=== PATIENT | female | born 1980 | race Caucasian/White ===

== ENCOUNTER 2016-10-24 07:44 | Inpatient (IN) ==
[2016-10-24] MEDS ORDERED: Ipratropium/Albuterol Neb 3 ML IH ONE ×3 (08:26→10:32)
[2016-10-24] MEDS ORDERED: Levofloxacin 750 MG/150 ML 750 MG/150 ML BAG IVPB ONE (08:27)
[2016-10-24] MEDS ORDERED: Ipratropium/Albuterol Neb 3 ML ONE ×2 (08:28→10:21)
[2016-10-24 08:46] LABS: Basophils # 0.1 K/mcL (0.0-0.2); Basophils % 0.9 %; Eosinophils # 0.1 K/mcL (0.0-0.6); Eosinophils % 1.5 %; Hematocrit 48.4 % (35.3-44.9); Hemoglobin 16.4 g/dL (11.5-15.4); Immature Granulocytes % 0.2 % (0-4); Immature Platelets 3.1 % (1.1-6.1); Lymphocytes # 1.3 K/mcL (0.6-4.6); Lymphocytes % 15.7 %; Mean Corpuscular HGB Conc 33.9 g/dL (31.6-35.5); Mean Corpuscular Hemoglobin 29.8 pg (28.0-33.3); Mean Corpuscular Volume 87.8 fL (83.0-100.0); Mean Platelet Volume 9.7 fL (9.4-12.4); Monocytes # 0.9 K/mcL (0.0-1.3); Monocytes % 10.3 %; Platelet Count 173 K/mcL (140-400); Red Blood Count 5.51 M/mcL (3.82-4.97); Red Cell Distribution Width 12.8 % (11.5-14.5); Segmented Neutrophils % 71.4 %
[2016-10-24 09:00] LABS: BUN/Creatinine Ratio 15 (6-26); Blood Urea Nitrogen 13 mg/dL (7-20); Calcium 9.2 mg/dL (8.6-10.8); Carbon Dioxide 17 mEq/L (19-29); Chloride 103 mEq/L (98-109); Glucose 93 mg/dL (70-99); Osmolality,Calculated 284 (280-300); Potassium 4.3 mEq/L (3.5-4.5); Sodium 137 mEq/L (136-145); eGFR For African Americans > 60 (> 60); eGFR For Non-African Americans > 60 (> 60)
--- NOTE | 2016-10-24 09:02 | Emergency Department Note ---
Disposition Clinical Impression: Acute exacerbation of chronic obstructive airways disease, Hypoxia Disposition: Admitted As Inpatient Condition: Good Referrals: NO,PCP [Primary Care Provider] - Forms: ED Satisfaction Letter Time of Disposition: 10:58 SOB HPI - General Chief Complaint: ED Shortness of Breath/Dyspnea Stated Complaint: KAILEY, cough Time Seen by Provider: 10/24/16 08:26 Source: patient Mode of arrival: private vehicle Limitations: no limitations Nursing Notes Reviewed: Yes Vital Signs Reviewed: Yes - History of Present Illness 35-year-old female patient presents to the emergency department complaining of difficulty in breathing and cough times several days. Patient states that she has had similar episodes in the past where she was diagnosed with bronchitis/ pneumonia. Patient states that she recently quit smoking, however is exposed to secondhand smoke quite often. She also complains of pain with inspiration. She notes a subjective fever and chills, but denies any nausea, vomiting abdominal pain or diarrhea. She has no additional complaints. Pt Subjective Complaint: shortness of breath, cough, pain with inspiration Onset (ago): day(s) Severity: severe Consistency/Duration: constant, gradually worsening Improves with: nothing Worsens with: coughing, inspiration Known history of: recurrent pneumonia Associated symptoms: Reports: pain with inspiration, fever, cough, wheezing Treatment prior to arrival: none Cough present: Yes Cough Description: Involuntary Cough Frequency: Intermittent Sputum production: No Sputum Amount: None - Related Data Home Medications Medication Instructions Recorded Confirmed Albuterol Neb [Proventil Neb] 2.5 mg IH DAILY 04/19/16 04/22/16 Albuterol Sulfate [Albuterol 2 puff IH Q6HR PRN 04/19/16 04/22/16 Inhaler] Buprenorphine HCl [Subutex] 8 mg SL BID 04/19/16 04/22/16 Fluticasone Propionate Nasal 1 spray NS BID 04/19/16 04/22/16 [Flonase] Lisinopril [Zestril] 20 mg PO DAILY 04/19/16 04/22/16 Metoprolol [Lopressor] 25 mg PO BID 04/19/16 04/22/16 Montelukast [Singulair] 10 mg PO DAILY 04/19/16 04/22/16 Budesonide/Formoterol 80/4.5 2 puff IH BID 04/20/16 04/22/16 [Symbicort 80/4.5] Omeprazole [PriLOSEC] 40 mg PO DAILY 04/20/16 04/22/16 Previous Rx's Medication Instructions Recorded GuaiFENesin ER [Mucinex] 600 mg PO BID PRN #30 tbbp.12hr 04/24/16 Levofloxacin [Levaquin] 750 mg PO DAILY #4 tablet 04/24/16 PredniSONE 10 mg PO DAILY #20 tablet 04/24/16 Allergies Allergy/AdvReac Type Severity Reaction Status Date / Time No Known Allergies Allergy Verified 10/24/16 08:08 All systems ED: reviewed and negative except as stated. Constitutional: Reports: fever, chills ENT ED: Denies: ear pain, throat pain Cardiovascular: Reports: chest pain Respiratory: Reports: cough, dyspnea, wheezes Gastrointestinal: Denies: abdominal pain, nausea, vomiting Musculoskeletal: Denies: back pain, neck pain Integumentary: Denies: rash, abrasion, lesions Neurological: Denies: headache Psychiatric: Denies: anxiety, depression, suicidal thoughts, homicidal thoughts Past Medical History - Past Medical History Attestation: Yes The following information was validated with the patient. Source: patient, nursing notes reviewed Medical history: Reports: arthritis, asthma, COPD, GERD, hypertension, other Surgical history: Reports: other (Tubal ligation) Psychiatric history: Reports: anxiety MAXILLOFACIAL SURGEON history: Reports: no MAXILLOFACIAL SURGEON history - Social History Smoking Status: Former smoker Smokeless Tobacco Status: No Alcohol use: Reports: none Drug use: Reports: none Physical Exam - General Limitations: no limitations General appearance: alert, in no apparent distress - Head Head exam: atraumatic, normocephalic, normal inspection - Eye Eye exam: Present: normal appearance, PERRL - ENT ENT exam: normal exam, normal oropharynx, mucous membranes moist, TM's normal bilaterally - Neck Neck exam: Present: normal inspection, full ROM, trachea midline - Chest Chest inspection: Present: normal inspection, symmetric chest wall rise, tenderness - Expanded Respiratory Exam Location: wheezes: Lower, Upper, Right, Left, rhonchi: Left, Right, Upper, Lower , decreased breath sounds: Lower, Upper, Right, Left - Cardiovascular Cardiovascular exam: Present: normal rhythm, tachycardia - Extremities Exam Extremities exam: Present: normal inspection, full ROM. Absent: tenderness, pedal edema - Back Exam Back exam: Present: normal inspection, full ROM. Absent: tenderness - Neurological Exam Neurological exam: Present: alert, oriented X3 - Psychiatric Psychiatric exam: Present: normal affect, normal mood - Skin Skin exam: Present: warm, dry, intact, normal color Course - Reevaluation(s) Reevaluation #1: Patient received 3 DuoNeb treatments and IV Solu-Medrol, states some mild improvement in her symptoms, however when we ambulated her her O2 saturation dropped down to 83%. Patient does not wear home oxygen. Oxygen saturation while in the bed on 2 L nasal cannula is between 90-94%. No evidence of pneumonia on the chest x-ray, however her hypoxia will require admission, frequent DuoNeb treatments and continued IV steroids. Plan to call hospitalist to discuss admission. Time: 10:58 - Consultations Consultation #1: Discussed with hospitalist, patient accepted for COPD exacerbation and hypoxia. Time: 11:11 Vital Signs Temperature 99.6 F 10/24/16 08:02 Pulse Rate 145 10/24/16 08:02 Respiratory Rate 24 10/24/16 08:02 Blood Pressure 103/79 10/24/16 08:02 O2 Sat by Pulse Oximetry 92 L 10/24/16 08:02 Temperature 99.6 F 10/24/16 08:02 Pulse Rate 133 10/24/16 09:58 Respiratory Rate 15 10/24/16 10:01 Blood Pressure 124/71 10/24/16 10:01 O2 Sat by Pulse Oximetry 92 L 10/24/16 10:01 Oxygen Delivery Oxygen Delivery Nasal Cannula Shortness of Breath/Dyspnea - Lab Data Lab results reviewed: Yes I reviewed the patient's lab results. Result diagrams: 10/24/16 08:36 10/24/16 08:36 Lab Results 10/24/16 10/24/16 10/24/16 Range/Units 08:36 08:36 08:36 WBC 8.5 (4.3-11.1) K/mcL RBC 5.51 H (3.82-4.97) M/mcL Hgb 16.4 H (11.5-15.4) g/dL Hct 48.4 H (35.3-44.9) % MCV 87.8 (83.0-100.0) fL MCH 29.8 (28.0-33.3) pg MCHC 33.9 (31.6-35.5) g/dL RDW 12.8 (11.5-14.5) % Plt Count 173 (140-400) K/mcL MPV 9.7 (9.4-12.4) fL Immature Gran % 0.2 (0-4) % Seg Neutrophils % 71.4 % Lymphocytes % 15.7 % Monocytes % 10.3 % Eosinophils % 1.5 % Basophils % 0.9 % Neutrophils # 6.0 (1.6-8.9) K/mcL Lymphocytes # 1.3 (0.6-4.6) K/mcL Monocytes # 0.9 (0.0-1.3) K/mcL Eosinophils # 0.1 (0.0-0.6) K/mcL Basophils # 0.1 (0.0-0.2) K/mcL Immature Plt Fraction 3.1 (1.1-6.1) % D-Dimer (0-500) ng/mLFEU Sodium 137 (136-145) mEq/L Potassium 4.3 (3.5-4.5) mEq/L Chloride 103 (98-109) mEq/L Carbon Dioxide 17 L (19-29) mEq/L BUN 13 (7-20) mg/dL Creatinine 0.84 (0.57-1.11) mg/dL Est GFR ( Amer) > 60 (> 60) Est GFR (Non-Af Amer) > 60 (> 60) BUN/Creatinine Ratio 15 (6-26) Glucose 93 (70-99) mg/dL Calculated Osmolality 284 (280-300) Lactic Acid (0.5-2.2) mmol/L Calcium 9.2 (8.6-10.8) mg/dL Troponin I 0.01 (0-0.03) ng/mL B-Natriuretic Peptide (0-100) pg/mL 10/24/16 10/24/16 10/24/16 Range/Units 08:36 08:36 08:36 WBC (4.3-11.1) K/mcL RBC (3.82-4.97) M/mcL Hgb (11.5-15.4) g/dL Hct (35.3-44.9) % MCV (83.0-100.0) fL MCH (28.0-33.3) pg MCHC (31.6-35.5) g/dL RDW (11.5-14.5) % Plt Count (140-400) K/mcL MPV (9.4-12.4) fL Immature Gran % (0-4) % Seg Neutrophils % % Lymphocytes % % Monocytes % % Eosinophils % % Basophils % % Neutrophils # (1.6-8.9) K/mcL Lymphocytes # (0.6-4.6) K/mcL Monocytes # (0.0-1.3) K/mcL Eosinophils # (0.0-0.6) K/mcL Basophils # (0.0-0.2) K/mcL Immature Plt Fraction (1.1-6.1) % D-Dimer 409 (0-500) ng/mLFEU Sodium (136-145) mEq/L Potassium (3.5-4.5) mEq/L Chloride (98-109) mEq/L Carbon Dioxide (19-29) mEq/L BUN (7-20) mg/dL Creatinine (0.57-1.11) mg/dL Est GFR ( Amer) (> 60) Est GFR (Non-Af Amer) (> 60) BUN/Creatinine Ratio (6-26) Glucose (70-99) mg/dL Calculated Osmolality (280-300) Lactic Acid 1.0 (0.5-2.2) mmol/L Calcium (8.6-10.8) mg/dL Troponin I (0-0.03) ng/mL B-Natriuretic Peptide 41 (0-100) pg/mL - Radiology Data Radiology results reviewed: Yes I reviewed the patient's radiology results. - EKG Data EKG attestation: Yes I reviewed and interpreted this EKG. EKG shows normal: Reports: sinus rhythm Rate: Reports: tachycardia Rhythm: Reports: NSR [place]/QRS: Reports: normal Attestation Statement - Attestation Attestation: Patient was seen with physician assistant manager pt. I reviewed the history, physical, assessment and plan, and agree with the findings. I also personally evaluated this patient and had oslo-df-ryhe time with this patient. 35-year-old female history of asthma and COPD presents with four-day history of worsening shortness of breath. Has home nebulizer treatments but they are not helping. Not on home O2. Denies fevers or chills has had occasional cough. No nausea vomiting or diarrhea. Denies any symptoms. On examination ENT is unremarkable. Lungs were listened to after 3 treatments and still showed significant wheezing throughout all lung ellison. Heart was tachycardic but regular with regular rhythm. Abdomen is soft and nontender extremities are unremarkable. Patient was given 3 breathing treatments and Solu-Medrol, but she still had nausea requirement in any labor drop her oxygen level to the low 80s. She is going to require inpatient respiratory therapy and pulmonary care in order to get her back to baseline. The hospitalist was notified and admission was arranged. Other laboratory testing was unremarkable and a chest x -ray did not show any acute abnormalities. EKG showed sinus tachycardia.I agree with the physicia aistant assessment and plan.
[2016-10-24] MEDS ORDERED: methylPREDNISolone 125 MG/2 ML VIAL IVP ONE (09:17)
[2016-10-24] MEDS ORDERED: 0.9 % Sodium Chloride 1,000 ML IVC ONE (09:17)
[2016-10-24] MEDS ORDERED: Ketorolac 30 MG/ML VIAL IV ONE (09:40)
[2016-10-24] MEDS ORDERED: 0.9 % Sodium Chloride 1,000 ML ONE (10:38)
[2016-10-24] MEDS ORDERED: Acetaminophen 325 MG TABLET PO PRN (11:39)
[2016-10-24] MEDS ORDERED: Naloxone 0.4 MG/ML INJ IVP PRN (11:39)
[2016-10-24] MEDS ORDERED: Ondansetron 4 MG/2 ML VIAL IVP PRN (11:39)
[2016-10-24] MEDS ORDERED: *HR* Morphine 2 MG/ML SYRINGE IVP PRN (11:39)
[2016-10-24] MEDS ORDERED: Ibuprofen 400 MG TABLET PO PRN (11:39)
--- NOTE | 2016-10-24 11:43 | Internal Med History&Physical ---
Date of Encounter: 10/24/16 Time of Encounter: 11:41 Assessment and Plan (1) Acute respiratory failure with hypoxia Current visit: No Status: Acute Acute hypoxic respiratory failure secondary to acute COPD exacerbation due to sepsis from acute bronchitis viral versus bacterial Start Rocephin, continue Solu-Medrol, DuoNeb's and oxygen therapy Check a respiratory viral panel (2) Bronchitis Current visit: Yes Status: Acute (3) Leukocytosis Current visit: Yes Status: Acute Qualifiers: Leukocytosis type: unspecified Qualified Code(s): D72.829 - Elevated white blood cell count, unspecified (4) Sepsis Current visit: No Status: Acute Qualifiers: Sepsis type: sepsis due to unspecified organism Qualified Code(s): A41.9 - Sepsis, unspecified organism (5) Acute exacerbation of chronic obstructive airways disease Current visit: Yes Status: Acute (6) Marijuana abuse Current visit: Yes Status: Acute Encouraged to quit (7) Hypertension Current visit: No Status: Chronic Qualifiers: Hypertension type: essential hypertension Qualified Code(s): I10 - Essential (primary) hypertension (8) GERD (gastroesophageal reflux disease) Current visit: Yes Status: Acute Omeprazole for GI prophylaxis Lovenox for DVT prophylaxis. Patient will be admitted as inpatient, expected to stay more than 2 midnights. Full code. Time spent on this admission 40 minutes. High for respiratory failure Qualifiers: Qualified Code(s): K21.9 - Gastro-esophageal reflux disease without esophagitis Internal Medicine - H&P: HPI Chief complaint: shortness of breath Admitted From: Emergency Dept History of present illness: Ms. Remy is a 35 year old female with a past medical history of COPD O2 independent, asthma, GERD, who comes to the emergency room complaining of 4 days of difficulty breathing worse in the past day. She has been dealing with a respiratory infection and a viral infection that affected her daughter initially, she called it a flu stomach virus. In the emergency room, saturation of oxygen dropped to 83%, the chest x-ray did not show any acute cardiopulmonary disease but she has been ringing up yellowish phlegm on and off. She was given Levaquin and Solu-Medrol. Also complains of pleuritic-type of pain midsternal worse when breathing. Denies any fevers, no abdominal pain. Denies any other complaints. White blood cell count was 16.4, heart rate was in the 130s. Past Med Surg Social Fam HX - Past Medical History Medical history: arthritis, asthma, COPD (Not oxygen dependent), GERD, hypertension, other (Pneumonia, tobacco use in the past, marijuana use) Psychiatric history: anxiety - Past Surgical History Surgical History: other (Tubal ligation) - Social History Smoking Status: Former smoker (Quit a few months ago) Smokeless Tobacco Status: No Alcohol use: none Drug use: none, marijuana (At times) - Family History Mother Adopted: No Family Member Ethnicity: Non- Living Status: Hx Family Cardiac Disorders: Yes - Additional Family History Additional family history: Paternal grandmother with diabetes Internal Medicine - H&P: Meds Albuterol Neb [Proventil Neb] 2.5 mg IH DAILY 04/19/16 [History] Albuterol Sulfate [Albuterol Inhaler] 2 puff IH Q6HR PRN 04/19/16 [History] Buprenorphine HCl [Subutex] 8 mg SL BID 04/19/16 [History] Lisinopril [Zestril] 20 mg PO DAILY 04/19/16 [History] Metoprolol [Lopressor] 25 mg PO BID 04/19/16 [History] Montelukast [Singulair] 10 mg PO DAILY 04/19/16 [History] Budesonide/Formoterol 80/4.5 [Symbicort 80/4.5] 2 puff IH BID 04/20/16 [History ] Loratadine [Claritin] 10 mg PO DAILY 10/24/16 [History] Allergies No Known Allergies Allergy (Verified 10/24/16 11:19) All Systems PM: A 10-system review of systems was performed and is negative for pertinent findings except as documented above in the HPI. Review of systems: Feels very short of breath, abdominal pain, no diarrhea, no dysuria. Other systems out of the 10 reviewed were negative - Constitutional Vitals: Temp Pulse Resp BP Pulse Ox 99.6 F 133 14 103/72 92 L 10/24/16 08:02 10/24/16 09:58 10/24/16 11:37 10/24/16 11:37 10/24/16 10:01 General appearance: Present: A&O X 3, severe distress, underweight - Head Head exam: Present: atraumatic, normocephalic - Eye Eye exam: Present: PERRL, conjuntiva pink, sclera anicteric Pupils: Present: PERRL - Neck Neck exam general surgery: Present: supple, trachea midline. Absent: lymphadenopathy - Respiratory Respiratory exam: Present: CTAB, rales, wheezes (Diffuse crackles and wheezing) . Absent: accessory muscle use, rhonchi - Cardiovascular Cardiovascular exam: Present: RRR, +S1, +S2. Absent: diastolic murmur, gallop, rubs, systolic murmur - GI/Abdominal GI/Abdominal exam: Present: normal bowel sounds, soft, no peritoneal signs. Absent: distended, tenderness - Extremities Exam Extremities exam: Present: warm, radial pulses palpable and symetrical. Absent : calf tenderness, cyanotic, pedal edema - Neurological Exam Neurological exam: Present: CN II-XII intact, oriented X3, no focal deficits. Absent: pronater drift, facial droop, speech deficit - Skin Skin exam: Present: dry, intact Internal Med - H&P Results - Labs CBC & Chem 7: 10/24/16 08:36 10/24/16 08:36
[2016-10-24] MEDS ORDERED: 0.9 % Sodium Chloride 1,000 ML IVC SCH (11:45)
[2016-10-24] MEDS: Ipratropium/Albuterol Neb 3 ML IH SCH ×3 (12:06→21:51)
[2016-10-24] MEDS: *HR* Buprenorphine HCl 8 MG TAB.SUBL SL SCH ×2 (15:05→21:24)
[2016-10-24] MEDS: BuPROPion SR (12 HR) 150 MG TABLET PO SCH (15:05)
[2016-10-24] MEDS: methylPREDNISolone 125 MG/2 ML VIAL IV SCH ×2 (15:06→23:51)
[2016-10-24 20:31] LABS: Adenovirus Not Detected (Not Detect); Bordetella Pertussis Not Detected (Not Detect); Chlamydophila pneumoniae Not Detected (Not Detect); Coronavirus 229E Not Detected (Not Detect); Coronavirus HKU1 Not Detected (Not Detect); Coronavirus NL63 Not Detected (Not Detect); Coronavirus OC43 Not Detected (Not Detect); Human Metapneumovirus Not Detected (Not Detect); Human Rhinovirus/Enterovirus Not Detected (Not Detect); Influenza A Subtype 2009 H1 Not Detected (Not Detect); Influenza A Untypeable Not Detected (Not Detect); Influenza B Not Detected (Not Detect); Mycoplasma pneumoniae Not Detected (Not Detect); Parainfluenza Virus 1 Not Detected (Not Detect); Parainfluenza Virus 2 Not Detected (Not Detect); Parainfluenza Virus 3 Not Detected (Not Detect); Parainfluenza Virus 4 Not Detected (Not Detect); Respiratory Syncytial Virus Not Detected (Not Detect)
[2016-10-24] MEDS: Budesonide/Formoterol 80/4.5 MDI IH SCH (21:52)
[2016-10-25] MEDS: Ipratropium/Albuterol Neb 3 ML IH SCH ×2 (04:17→11:31)
[2016-10-25 04:53] LABS: Hematocrit 40.7 % (35.3-44.9); Mean Corpuscular HGB Conc 33.4 g/dL (31.6-35.5); Mean Corpuscular Volume 89.8 fL (83.0-100.0); Mean Platelet Volume 10.3 fL (9.4-12.4); Platelet Count 140 K/mcL (140-400); Red Blood Count 4.53 M/mcL (3.82-4.97); Red Cell Distribution Width 12.8 % (11.5-14.5)
[2016-10-25 04:54] LABS: Hemoglobin 13.6 g/dL (11.5-15.4)
[2016-10-25 05:06] LABS: BUN/Creatinine Ratio 19 (6-26); Blood Urea Nitrogen 13 mg/dL (7-20); Calcium 8.8 mg/dL (8.6-10.8); Carbon Dioxide 20 mEq/L (19-29); Chloride 109 mEq/L (98-109); Glucose 176 mg/dL (70-99); Osmolality,Calculated 294 (280-300); Potassium 4.1 mEq/L (3.5-4.5); Sodium 140 mEq/L (136-145); eGFR For African Americans > 60 (> 60); eGFR For Non-African Americans > 60 (> 60)
[2016-10-25] MEDS ORDERED: *HR* Enoxaparin 40 MG/0.4 ML SYRINGE SQ SCH (07:00)
[2016-10-25 07:05] VITALS: BP 109/67
[2016-10-25] MEDS: BuPROPion SR (12 HR) 150 MG TABLET PO SCH (07:53)
[2016-10-25] MEDS: *HR* Buprenorphine HCl 8 MG TAB.SUBL SL SCH (07:53)
[2016-10-25] MEDS: methylPREDNISolone 125 MG/2 ML VIAL IV SCH (07:54)
[2016-10-25] MEDS ORDERED: Lisinopril 20 MG TABLET PO SCH (09:00)
--- NOTE | 2016-10-25 09:57 | Discharge Summary ---
<Dheeraj Adams - Last Filed: 10/25/16 09:54> Date of Encounter: 10/25/16 Time of Encounter: 08:15 - Discharge Diagnosis (1) Acute exacerbation of chronic obstructive airways disease Priority: Primary Status: Acute (2) Hypoxia Priority: Primary Status: Acute (3) Hypertension Priority: Secondary Status: Chronic Qualifiers: Hypertension type: essential hypertension Qualified Code(s): I10 - Essential (primary) hypertension - Discharge Medications Prescriptions: Albuterol Sulfate [Albuterol Inhaler] 2 puff IH Q6HR PRN #1 inhaler PRN Reason: Shortness Of Breath Albuterol Neb [Proventil Neb] 2.5 mg IH DAILY #1 inhsol Budesonide/Formoterol 80/4.5 [Symbicort 80/4.5] 2 puff IH BID #1 inhaler Levofloxacin [Levaquin] 750 mg PO DAILY #6 tablet Montelukast [Singulair] 10 mg PO DAILY #1 tablet PredniSONE 40 mg PO DAILY 5 Days Home Medications: Buprenorphine HCl [Subutex] 8 mg SL BID 04/19/16 [History] Lisinopril [Zestril] 20 mg PO DAILY 04/19/16 [History] Metoprolol [Lopressor] 25 mg PO BID 04/19/16 [History] Loratadine [Claritin] 10 mg PO DAILY 10/24/16 [History] Albuterol Neb [Proventil Neb] 2.5 mg IH DAILY #1 inhsol 10/25/16 [Rx] Albuterol Sulfate [Albuterol Inhaler] 2 puff IH Q6HR PRN #1 inhaler 10/25/16 [Rx ] Budesonide/Formoterol 80/4.5 [Symbicort 80/4.5] 2 puff IH BID #1 inhaler [Rx] Levofloxacin [Levaquin] 750 mg PO DAILY #6 tablet 10/25/16 [Rx] Montelukast [Singulair] 10 mg PO DAILY #1 tablet 10/25/16 [Rx] PredniSONE 40 mg PO DAILY 5 Days 10/25/16 [Rx] Allergies/Adverse Reactions: Allergies No Known Allergies Allergy (Verified 10/24/16 11:19) Date of admission: 10/24/16 11:39 Primary care physician: PCP NO Discharging clinician: Dheeraj Adams Anticipated date of discharge: 10/25/16 - Patient Status Disposition: Home, Self-Care Condition: Good Functional capacity at discharge: independent ambulation Overall status at discharge: patient is progressing back to baseline - Discharge Instructions Instructions: Chronic Obstructive Pulmonary Disease (DC) Follow Up With: NO,PCP [Primary Care Provider] - Kat Jurado DO [Resident] - 11/03/16 3:45 pm Additional Instructions: Follow up with PCP in the next 3-5 days for evaluation and refills on inhalers. Take inhalers, antibiotics as prescribed. - Diet and Activity Activity: increase activity as tolerated Diet: advance to your usual diet Interval History: Ms. Remy 35-year-old female admitted with COPD exacerbation and tachycardia. Hospital course: Ms. Remy is a 35 year old female no history of asthma, COPD not dependent on oxygen, GERD, hypertension was admitted with COPD exacerbation and tachycardia. Upon admission she was tachycardic with a heart rate 145 demonstrated on EKG, requiring 2 L oxygen to maintain oxygen saturations greater than 90%. She is started on inpatient DuoNeb nebulizers, IV Solu-Medrol, continued on home inhalers. With improvement of her respiratory status her heart rate normalized and blood pressure remained stable throughout inpatient stay. Her productive cough resolved and her respiratory status improved greatly overnight. During her inpatient stay she remained without leukocytosis. Chest x-ray completed demonstrated no acute cardiopulmonary process but did appear to be hyperinflated bilaterally correlating with COPD. Overnight she weaned off oxygen, respirations stabilized and she maintained oxygen saturations at room air greater than 90%. In further discussion with the patient she had not been taking her Symbicort, albuterol or other respiratory medications as she no longer has a primary care physician and ran out of refills. She had been using her albuterol nebulizer as her only treatments and demonstrated increased use prior to admission. On 10/25/2016 the patient was deemed stable for discharge home and was provided scripts for continued prednisone, Levaquin to complete inpatient course and refills on her home inhalers. She will require PCP and establish care and recommended to follow-up with the [facility] residency outpatients clinic. - Time Spent with Patient Total time spent providing and/or coordinating discharge services: - Constitutional Vitals: Temp Pulse Resp BP Pulse Ox 98.1 F 88 18 109/67 93 L 10/25/16 07:02 10/25/16 07:02 10/25/16 07:02 10/25/16 07:02 10/25/16 07:02 General appearance: Present: A&O X 3, severe distress, underweight - Head Head exam: Present: atraumatic, normocephalic - Eye Eye exam: Present: PERRL, conjuntiva pink, sclera anicteric Pupils: Present: PERRL - ENT ENT exam: Present: mucous membranes moist - Neck Neck exam general surgery: Present: supple, trachea midline. Absent: lymphadenopathy - Respiratory Additional comments: Chest symmetric bilateral correlating with rest. After, respirations were nonlabored, patient had diffuse inspiratory and expiratory wheeze in all lung ellison. - Cardiovascular Cardiovascular exam: Present: RRR, +S1, +S2 - GI/Abdominal GI/Abdominal exam: Present: normal bowel sounds, soft. Absent: tenderness - Extremities Exam Extremities exam: Present: warm. Absent: pedal edema - Neurological Exam Neurological exam: Present: alert, oriented X3, no focal deficits - Psychiatric Psychiatric exam: Present: normal affect, normal mood <Nickolas Stanton - Last Filed: 10/25/16 18:23> Date of Encounter: 10/25/16 - Discharge Diagnosis (1) Acute respiratory failure with hypoxia Priority: Primary Status: Acute (2) Acute exacerbation of chronic obstructive airways disease Status: Acute (3) Hypertension Status: Chronic Qualifiers: Hypertension type: essential hypertension Qualified Code(s): I10 - Essential (primary) hypertension (4) Nicotine dependence with nicotine-induced disorder Priority: Secondary Status: Chronic Qualifiers: Nicotine product type: cigarettes Qualified Code(s): F17.219 - Nicotine dependence, cigarettes, with unspecified nicotine-induced disorders Date of admission: 10/24/16 11:39 Primary care physician: PCP NO Hospital course: Ms. Reym is a 35 year old female - Time Spent with Patient Total time spent providing and/or coordinating discharge services: - Constitutional Vitals: Temp Pulse Resp BP Pulse Ox 98.1 F 88 18 109/67 98 10/25/16 07:02 10/25/16 07:02 10/25/16 07:02 10/25/16 07:02 10/25/16 11:45 - Attending Attestation I examined this patient and my medical decision-making was reviewed with the Resident Physician on 10/25/16. I agree with the documented findings, disposition and treatment plan as described except to the extent set forth below. Ms. Remy has been admitted for acute exac COPD. She is feeling at baseline and off oxygen. She is ready to go home. Exam Alert. Comfortable Heart reg Lungs with some wheeze No edema Plan D/C today Follow up with PCP Further diagnoses and plan as above.
[2016-10-25] MEDS ORDERED: FLU VACC QS2016-17 36MOS UP/PF 0.5 ML SYRINGE IM ONE (10:59)
--- NOTE | 2016-10-25 11:16 | Electrocardiograph Report ---
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
[2016-10-25] MEDS: Budesonide/Formoterol 80/4.5 MDI IH SCH (11:31)
== END 2016-10-25 12:42 | disposition home or self-care (01) | DRG 140 ==
LOC: 3BNU 07:44 → EMEROO 07:44 → SUATTDRO 11:39 → 3BNU 11:40
PROVIDERS: ADMIT Internal Medicine; ATTEND Internal Medicine

== ENCOUNTER 2017-04-07 17:36 | Inpatient (IN) ==
[2017-04-07] MEDS ORDERED: methylPREDNISolone 125 MG/2 ML VIAL IVP ONE (18:31)
[2017-04-07] MEDS ORDERED: Ipratropium/Albuterol Neb 3 ML IH ONE ×2 (18:31→21:50)
[2017-04-07] MEDS ORDERED: Ibuprofen 800 MG TABLET PO ONE (19:21)
[2017-04-07 21:07] LABS: Basophils % 0.4 %; Eosinophils # 0.1 K/mcL (0.0-0.6); Eosinophils % 1.3 %; Hematocrit 42.1 % (35.3-44.9); Immature Granulocytes % 0.3 % (0-4); Lymphocytes # 1.1 K/mcL (0.6-4.6); Lymphocytes % 11.6 %; Mean Corpuscular HGB Conc 33.3 g/dL (31.6-35.5); Mean Corpuscular Hemoglobin 30.2 pg (28.0-33.3); Mean Corpuscular Volume 90.7 fL (83.0-100.0); Mean Platelet Volume 9.6 fL (9.4-12.4); Monocytes # 0.8 K/mcL (0.0-1.3); Monocytes % 8.7 %; Platelet Count 210 K/mcL (140-400); Red Blood Count 4.64 M/mcL (3.82-4.97); Red Cell Distribution Width 12.9 % (11.5-14.5); Segmented Neutrophils % 77.7 %
[2017-04-07 21:09] LABS: BUN/Creatinine Ratio 9 (6-26); Blood Urea Nitrogen 7 mg/dL (7-20); Calcium 9.3 mg/dL (8.6-10.8); Carbon Dioxide 25 mEq/L (19-29); Chloride 99 mEq/L (98-109); Glucose 113 mg/dL (70-99); Osmolality,Calculated 281 (280-300); Potassium 3.8 mEq/L (3.5-4.5); Sodium 136 mEq/L (136-145); eGFR For African Americans > 60 (> 60); eGFR For Non-African Americans > 60 (> 60)
[2017-04-07] MEDS ORDERED: 0.9 % Sodium Chloride 1,000 ML IVC ONE ×2 (21:48→23:35)
--- NOTE | 2017-04-07 21:53 | Emergency Department Note ---
Disposition Clinical Impression: Community acquired pneumonia, Hypoxia Disposition: Admitted As Inpatient Condition: Good Referrals: Unassigned,Provider [Non-Partnered Physician] - Forms: ED Satisfaction Letter Time of Disposition: 01:03 SOB HPI - General Chief Complaint: ED Shortness of Breath/Dyspnea Stated Complaint: KAILEY Time Seen by Provider: 04/07/17 18:07 Source: patient Mode of arrival: ambulatory Limitations: no limitations Nursing Notes Reviewed: Yes Vital Signs Reviewed: Yes - History of Present Illness Patient presents emergency room complaining of shortness of breath. She has had this happen several times in the past secondary to asthma exacerbation and pneumonia. She is concerned that she might have pneumonia again secondary to productive dark-colored sputum. Patient denies any other symptoms she has had intermittent chills for the last day or 2 no chest pain no fevers no headache no vision changes no nausea vomiting or diarrhea at this time. Pt Subjective Complaint: shortness of breath Onset (ago): day(s) Context: recent illness Severity: moderate Consistency/Duration: constant Improves with: nothing Worsens with: lying flat, exertion Known history of: COPD, asthma, recurrent pneumonia Associated symptoms: Reports: cough Treatment prior to arrival: bronchodilator Cough present: Yes Cough Description: Voluntary Cough Frequency: Intermittent Sputum production: Yes Sputum Amount: Small Sputum Color: Yellow, Green - Related Data Home Medications Medication Instructions Recorded Confirmed Buprenorphine HCl [Subutex] 8 mg SL BID 04/19/16 10/24/16 Lisinopril [Zestril] 20 mg PO DAILY 04/19/16 10/24/16 Metoprolol [Lopressor] 25 mg PO BID 04/19/16 10/24/16 Loratadine [Claritin] 10 mg PO DAILY 10/24/16 10/24/16 Previous Rx's Medication Instructions Recorded Albuterol Neb [Proventil Neb] 2.5 mg IH DAILY #1 inhsol 10/25/16 Albuterol Sulfate [Albuterol 2 puff IH Q6HR PRN #1 inhaler 10/25/16 Inhaler] Budesonide/Formoterol 80/4.5 2 puff IH BID #1 inhaler 10/25/16 [Symbicort 80/4.5] Levofloxacin [Levaquin] 750 mg PO DAILY #6 tablet 10/25/16 Montelukast [Singulair] 10 mg PO DAILY #1 tablet 10/25/16 predniSONE [PredniSONE] 40 mg PO DAILY 5 Days 10/25/16 PredniSONE [Deltasone] 40 mg PO DAILY #5 tablet 03/04/17 Allergies Allergy/AdvReac Type Severity Reaction Status Date / Time No Known Allergies Allergy Verified 03/03/17 23:21 All systems ED: reviewed and negative except as stated. Constitutional: Reports: chills. Denies: fever, weakness Cardiovascular: Reports: dyspnea on exertion. Denies: chest pain, palpitations , orthopnea, edema Respiratory: Reports: cough, dyspnea, wheezes, sputum production. Denies: stridor Gastrointestinal: Denies: abdominal pain, nausea, vomiting, diarrhea Genitourinary: Denies: urgency, dysuria, frequency Musculoskeletal: Denies: back pain, neck pain Neurological: Denies: headache, weakness, numbness Psychiatric: Denies: anxiety, depression Endocrine: Denies: fatigue Allergic/Immunologic: Denies: facial swelling Past Medical History - Past Medical History Attestation: Yes The following information was validated with the patient. 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 Absent: respiratory distress - Cardiovascular Cardiovascular exam: Present: normal rhythm, tachycardia, normal heart sounds - Abdominal Exam Abdominal exam: Present: soft, Non-Tender. Absent: tenderness, distention, guarding, rebound, rigidity - Extremities Exam Extremities exam: Present: normal inspection, full ROM. Absent: tenderness, pedal edema - Back Exam Back exam: Present: normal inspection, full ROM. Absent: tenderness - Neurological Exam Neurological exam: Present: alert, oriented X3 - Psychiatric Psychiatric exam: Present: normal affect, normal mood - Skin Skin exam: Present: warm, dry, intact, normal color Course Course Narrative: Patient seen and examined at the time of arrival. See history of present illness. 36-year-old female presents to emergency room with complaint of shortness of breath and productive cough. Patient has history of pneumonia as well as asthma with COPD. Patient denies any recent trauma, chest pain shortness of breath headache vision changes nausea vomiting or diarrhea. Denies any fevers or chills. Patient is here because she just feels uncomfortable with breathing and gets lightheaded when she starts to walk around. Vital signs reviewed patient is hypoxic on presentation into the mid 80s. She is also tachycardic. Patient is concerning for possible pulmonary liver tissue including infection pulmonary emboli and interstitial lung disease. Patient had EKG chest x-ray laboratory workup urinalysis and d-dimer considering she is concerning based on presentation issue. Disposition will be determined once workup and treatment course are completed. Breathing treatments to be given at that this time and steroids. We will provide fluid hydration at this time and then discuss treatment course. Patient understands this is comfortable with the plan. Otherwise physical exam is benign except for intermittent wheezing in the bilateral lungs. Heart is tachycardic no murmurs noted. Abdomen is soft nontender nondistended. - Reevaluation(s) Reevaluation #1: Patient found to have elevated d-dimer with stable chest x-ray. She has been persistently tachycardic and hypoxic when the oxygen is turned off. She does feel much better when the oxygen is on by nasal cannula. Patient because of the elevated d-dimer will be evaluated with a CT angiogram of the chest. She discussed that in the past she was found to have pneumonia by CT and was not found on chest x-ray. Patient will be provided with fluid boluses at this point and determine disposition after that. Time: 22:35 Reevaluation #2: CT angiogram confirms no signs of acute pulmonary emboli the patient does have interstitial lung disease consistent with infection. Patient started on IV antibiotics secondary to hypoxia. Recommended for admission. Patient is comfortable with this plan. Admission process to be completed. Consultation and conversation were had with the on-call hospitalist Dr. levine. We reviewed the presentation symptoms medical history and the hypoxia without oxygen here in the emergency room. No other recommendations from them at this time. Patient will be admitted for what appears to be pneumonia causing hypoxia. Patient is comfortable with this plan we will continue to monitor to the admission process is completed. Time: 01:02 Vital Signs Temperature 99.5 F 04/07/17 17:38 Pulse Rate 128 04/07/17 17:38 Respiratory Rate 24 04/07/17 17:38 Blood Pressure 114/74 04/07/17 17:38 O2 Sat by Pulse Oximetry 93 04/07/17 17:38 Temperature 99.5 F 04/07/17 17:38 Pulse Rate 107 04/07/17 22:26 Respiratory Rate 20 04/07/17 22:26 Blood Pressure 104/75 04/07/17 22:26 O2 Sat by Pulse Oximetry 93 04/07/17 22:26 Oxygen Delivery Oxygen Delivery Nasal Cannula Shortness of Breath/Dyspnea - MDM Narrative Medical decision making narrative: Hypoxia, bilateral pneumonia, asthma - Medical Records Medical records reviewed: Yes I reviewed the patient's medical records. - Lab Data Lab results reviewed: Yes I reviewed the patient's lab results. Result diagrams: 04/07/17 20:26 04/07/17 20:26 Lab Results 04/07/17 04/07/17 04/07/17 Range/Units 20:26 20:26 20:26 WBC 9.0 (4.3-11.1) K/mcL RBC 4.64 (3.82-4.97) M/mcL Hgb 14.0 (11.5-15.4) g/dL Hct 42.1 (35.3-44.9) % MCV 90.7 (83.0-100.0) fL MCH 30.2 (28.0-33.3) pg MCHC 33.3 (31.6-35.5) g/dL RDW 12.9 (11.5-14.5) % Plt Count 210 (140-400) K/mcL MPV 9.6 (9.4-12.4) fL Immature Gran % 0.3 (0-4) % Seg Neutrophils % 77.7 % Lymphocytes % 11.6 % Monocytes % 8.7 % Eosinophils % 1.3 % Basophils % 0.4 % Neutrophils # 7.0 (1.6-8.9) K/mcL Lymphocytes # 1.1 (0.6-4.6) K/mcL Monocytes # 0.8 (0.0-1.3) K/mcL Eosinophils # 0.1 (0.0-0.6) K/mcL Basophils # 0.0 (0.0-0.2) K/mcL D-Dimer 656 H (0-500) ng/mLFEU Sodium 136 (136-145) mEq/L Potassium 3.8 (3.5-4.5) mEq/L Chloride 99 (98-109) mEq/L Carbon Dioxide 25 (19-29) mEq/L BUN 7 (7-20) mg/dL Creatinine 0.76 (0.57-1.11) mg/dL Est GFR ( Amer) > 60 (> 60) Est GFR (Non-Af Amer) > 60 (> 60) BUN/Creatinine Ratio 9 (6-26) Glucose 113 H (70-99) mg/dL Calculated Osmolality 281 (280-300) Lactic Acid (0.5-2.2) mmol/L Calcium 9.3 (8.6-10.8) mg/dL 04/07/17 Range/Units 23:50 WBC (4.3-11.1) K/mcL RBC (3.82-4.97) M/mcL Hgb (11.5-15.4) g/dL Hct (35.3-44.9) % MCV (83.0-100.0) fL MCH (28.0-33.3) pg MCHC (31.6-35.5) g/dL RDW (11.5-14.5) % Plt Count (140-400) K/mcL MPV (9.4-12.4) fL Immature Gran % (0-4) % Seg Neutrophils % % Lymphocytes % % Monocytes % % Eosinophils % % Basophils % % Neutrophils # (1.6-8.9) K/mcL Lymphocytes # (0.6-4.6) K/mcL Monocytes # (0.0-1.3) K/mcL Eosinophils # (0.0-0.6) K/mcL Basophils # (0.0-0.2) K/mcL D-Dimer (0-500) ng/mLFEU Sodium (136-145) mEq/L Potassium (3.5-4.5) mEq/L Chloride (98-109) mEq/L Carbon Dioxide (19-29) mEq/L BUN (7-20) mg/dL Creatinine (0.57-1.11) mg/dL Est GFR ( Amer) (> 60) Est GFR (Non-Af Amer) (> 60) BUN/Creatinine Ratio (6-26) Glucose (70-99) mg/dL Calculated Osmolality (280-300) Lactic Acid 1.4 (0.5-2.2) mmol/L Calcium (8.6-10.8) mg/dL - Radiology Data Radiology results reviewed: Yes I reviewed the patient's radiology results. CT images of the chest is negative for acute pulmonary emboli but is positive for bilateral interstitial pneumonia - EKG Data EKG attestation: Yes I reviewed and interpreted this EKG. EKG shows normal: Reports: sinus rhythm, axis, intervals, QRS complexes, ST-T waves Rate: Reports: tachycardia Rhythm: Reports: NSR [place]/QRS: Reports: normal When compared to previous EKG there are: no significant changes Interpretation: Reports: no acute changes, unchanged when compared to prior tracing (date) (03/03/70) Critical Care Time Critical Care Time: Yes Total Critical Care Time: 35 Attestation: Critical care performed: Time is exclusive of separately billable procedures. Time includes: direct patient care, patient reassessment, coordination of patient care, interpretation of data (laboratory data, radiology data, and respiratory data), review of patient's medical records, medical consultation and documentation of patient care. Procedures included in critical care time: Respiratory stabilization with breathing treatments and medications. Procedures excluded from critical care time:
[2017-04-07] MEDS ORDERED: levoFLOXacin 500 MG TABLET PO ONE (23:29)
[2017-04-08] MEDS ORDERED: Levofloxacin 750 MG/150 ML 750 MG/150 ML BAG IVPB ONE (00:03)
--- NOTE | 2017-04-08 02:07 | Internal Med History&Physical ---
<Dheeraj Adams - Last Filed: 04/08/17 03:07> Date of Encounter: 04/08/17 Time of Encounter: 01:59 Assessment and Plan (1) Acute respiratory failure Current visit: Yes Status: Acute Patient presents to emergency department with dyspnea, hypoxia with oxygen saturation at 80% requiring 4.5 L of nasal cane oxygen to maintain oxygen saturations 90%. - Risk factors include asthma, none formally diagnosed with COPD, recurrent admissions for hypoxia and multifocal pneumonia. - Current admission for community acquired pneumonia, multifocal. Patient has shortness of breath, hypoxia, green sputum production with cough. Increased oxygen demand. Plan: - Admit to general medical floor - Antibiotic coverage with Levaquin and ceftriaxone - IV steroids - Dual nebs, albuterol nebulizer, Symbicort - Continue home dose montelukast - Pulmonology consultation for evaluation for recurrent pneumonia and respiratory workup. - Patient will require PFTs in the outpatient setting after resolution of her current pneumonia. - Wean oxygen as tolerated. Qualifiers: Qualified Code(s): J96.00 - Acute respiratory failure, unspecified whether with hypoxia or hypercapnia (2) Community acquired pneumonia Current visit: Yes Status: Acute As mentioned above. (3) Severe persistent asthma Current visit: Yes Status: Acute Patient has a history of asthma, recurrent hypoxic episodes of hospitalization. Symptoms exacerbated with warm weather, allergies, increased activity. - Current respiratory coverage includes montelukast, Briel, albuterol inhaler - Recurrent hospitalizations. Plan: - Pulmonology evaluation - PFTs in the outpatient setting with bronchodilator correlation. Qualifiers: Qualified Code(s): J45.50 - Severe persistent asthma, uncomplicated (4) DVT prophylaxis Current visit: No Status: Acute [facility] Internal Medicine - H&P: HPI Chief complaint: SOB Admitted From: Emergency Dept Plans for Post Hospital Care: Home History of present illness: Ms. Remy is a 36 year old female history of asthma, recurrent pneumonia and hospitalizations for hypoxia was admitted from the emergency department with hypoxia and increased oxygen demand. Patient states that she started having headaches on Monday followed by postnasal drainage and sore throat which progressed into shortness of breath with green sputum production. She describes the sputum as chunky never having this before. She said she is been diagnosed with pneumonia and COPD with her last hospitalization roughly 6 months ago. She had a subjective fever at home, denies chills or sweating she denies any chest pain or palpitations, abdominal pain nausea vomiting diarrhea constipation but did have a lack of appetite. She has been using her inhalers regularly as prescribed and denies taking any other medications. She has a previous history of smoking but has not smoked roughly one year. She follows up frequently for her primary care provider for refills on her inhalers. She denies ever seeing a payable manager in the past for workup on her lung disease. She mentions that as a child she was hospitalized frequently for asthma attacks and that her family moved to [place] because of her health. She feels that she has grown mostly on her asthma but continues to have asthma attacks. Since arriving in the emergency department and placed on nasal Oxygen she feels that her symptoms have greatly improved but she still feels ill. Past Med Surg Social Fam HX - Past Medical History Medical history: arthritis, asthma, COPD, GERD, hypertension, other Psychiatric history: anxiety, depression - Past Surgical History Surgical History: other - Social History Smoking Status: Current every day smoker Smokeless Tobacco Status: No Alcohol use: occasionally Drug use: marijuana, other - Family History Mother Adopted: No Family Member Ethnicity: Non- Living Status: Age at : 49 Cause of : overdose Hx Family Cardiac Disorders: Yes (heart enlargement) Internal Medicine - H&P: Meds Buprenorphine HCl [Subutex] 8 mg SL BID 04/19/16 [History] Metoprolol [Lopressor] 25 mg PO BID 04/19/16 [History] Loratadine [Claritin] 10 mg PO DAILY 10/24/16 [History] Albuterol Neb [Proventil Neb] 2.5 mg IH DAILY #1 inhsol 10/25/16 [Rx] Albuterol Sulfate [Albuterol Inhaler] 2 puff IH Q6HR PRN #1 inhaler 10/25/16 [Rx ] Montelukast [Singulair] 10 mg PO DAILY #1 tablet 10/25/16 [Rx] BuPROPion SR (12 HR) [Wellbutrin SR] 300 mg PO BID 04/08/17 [History] Fluticasone/Vilanterol [Breo Ellipta 100-25 Mcg INH] 1 puff IH DAILY 04/08/17 [ History] Allergies No Known Allergies Allergy (Verified 03/03/17 23:21) All Systems PM: A 10-system review of systems was performed and is negative for pertinent findings except as documented above in the HPI. - Constitutional Constitutional: fever(s), no chills, no night sweats - EENT Eyes: no change in vision, no discharge, no pain, no photophobia Ears: no ear discharge, no ear pain, no tinnitus Nose, mouth and throat: nasal discharge, post-nasal drip, no dysphagia, no neck pain, no sore throat - Cardiovascular Cardiovascular ROS IM: no chest pain, no diaphoresis, no dyspnea, no lightheadedness, no palpitations, no syncope - Respiratory Respiratory: cough, dyspnea, excessive phlegm production, change in phlegm color , no wheezing - Gastrointestinal Gastrointestinal: no abdominal pain, no diarrhea, no hematemesis, no hematochezia, no melena, no nausea, no vomiting - Genitourinary Genitourinary: no change in urinary stream, no dysuria, no flank pain, no hematuria - Musculoskeletal Musculoskeletal ROS IM: no numbness, no tingling - Integumentary Integumentary IM: no rash, no unusual bruising - Neurological Neurological ROS: no confusion, no convulsions, no focal weakness, no numbness, no tingling, no tremor(s) - Hematologic/Lymphatic Hematologic/Lymphatic: no easy bruising - Constitutional Vitals: Temp Pulse Resp BP Pulse Ox 97.8 F 108 14 108/74 91 04/08/17 01:50 04/08/17 01:50 04/08/17 01:50 04/08/17 01:50 04/08/17 01:50 Exam: General: Patient alert, awake, oriented 3, interactive, in no acute distress HEENT: Normocephalic, atraumatic, pupils equal reactive to light, nasal cavity patent and open septum median position, oral mucosa moist, uvula midline, neck supple trachea midline no palpable lymphadenopathy, no thyromegaly. Chest: Symmetric bilateral correlating with respiratory effort, effort nonlabored. Cardiac: Tachycardia, positive S1 and S2. no bruits appreciated bilateral carotids, Radial pulses 2+ bilateral, posterior tibial and dorsal pedal pulses 2 + bilateral. Respiratory: Rhonchi appreciated bilateral lung bases with expiratory wheeze. Upper lung ellison clear to auscultation. Abdomen: Soft, nontender, positive bowel sounds, no palpable masses appreciated on examination Extremities: Symmetric bilateral, bilateral lower extremities without erythema or edema patient moving all 4 extremities spontaneously. Neurologic: No focal deficits appreciated on examination. Face symmetric, muscle strength symmetric bilateral upper and lower extremities. Internal Med - H&P Results - Labs CBC & Chem 7: 04/07/17 20:26 04/07/17 20:26 <Nati Pérez - Last Filed: 04/08/17 06:09> Date of Encounter: 04/08/17 Internal Medicine - H&P: HPI History of present illness: Ms. Remy is a 36 year old female All Systems PM: A 10-system review of systems was performed and is negative for pertinent findings except as documented above in the HPI. - Constitutional Vitals: Temp Pulse Resp BP Pulse Ox 97.8 F 108 14 108/74 91 04/08/17 01:50 04/08/17 01:50 04/08/17 01:50 04/08/17 01:50 04/08/17 01:50 Internal Med - H&P Results - Labs CBC & Chem 7: 04/08/17 04:21 04/08/17 04:21 Labs: Short CBC 04/08/17 Range/Units 04:21 WBC 6.1 (4.3-11.1) K/mcL Hgb 12.8 (11.5-15.4) g/dL Hct 38.4 (35.3-44.9) % Plt Count 184 (140-400) K/mcL Neutrophils # 5.5 (1.6-8.9) K/mcL BMP 04/08/17 04:21 Sodium 139 Potassium 3.8 Chloride 105 Carbon Dioxide 25 BUN 8 Creatinine 0.73 Glucose 209 H Calcium 8.9 - Attending Attestation I examined this patient and my medical decision-making was reviewed with the Resident Physician. I agree with the documented findings, disposition and treatment plan as described
[2017-04-08] MEDS ORDERED: Acetaminophen 325 MG TABLET PO PRN (02:57)
[2017-04-08] MEDS ORDERED: Ondansetron ODT 4 MG TAB.RAPDIS SL PRN (02:57)
[2017-04-08] MEDS ORDERED: Naloxone 0.4 MG/ML INJ IVP PRN (02:57)
[2017-04-08] MEDS ORDERED: Albuterol 2.5 MG/3 ML NEBULIZER IH PRN (03:05)
[2017-04-08 05:42] LABS: Basophils % 0.2 %; Hematocrit 38.4 % (35.3-44.9); Hemoglobin 12.8 g/dL (11.5-15.4); Immature Granulocytes % 0.7 % (0-4); Lymphocytes # 0.4 K/mcL (0.6-4.6); Lymphocytes % 6.4 %; Mean Corpuscular HGB Conc 33.3 g/dL (31.6-35.5); Mean Corpuscular Hemoglobin 30.8 pg (28.0-33.3); Mean Corpuscular Volume 92.3 fL (83.0-100.0); Mean Platelet Volume 9.9 fL (9.4-12.4); Monocytes # 0.1 K/mcL (0.0-1.3); Monocytes % 2.1 %; Neutrophils # 5.5 K/mcL (1.6-8.9); Platelet Count 184 K/mcL (140-400); Red Blood Count 4.16 M/mcL (3.82-4.97); Red Cell Distribution Width 12.8 % (11.5-14.5); Segmented Neutrophils % 90.6 %
[2017-04-08] MEDS: *HR* Enoxaparin 40 MG/0.4 ML SYRINGE SQ SCH (05:49)
[2017-04-08 05:55] LABS: BUN/Creatinine Ratio 11 (6-26); Blood Urea Nitrogen 8 mg/dL (7-20); Calcium 8.9 mg/dL (8.6-10.8); Carbon Dioxide 25 mEq/L (19-29); Chloride 105 mEq/L (98-109); Glucose 209 mg/dL (70-99); Osmolality,Calculated 292 (280-300); Potassium 3.8 mEq/L (3.5-4.5); Sodium 139 mEq/L (136-145); eGFR For African Americans > 60 (> 60); eGFR For Non-African Americans > 60 (> 60)
--- NOTE | 2017-04-08 06:47 | Pulmonology Consult Note ---
Date of Encounter: 04/08/17 Time of Encounter: 06:47 Assessment and Plan (1) Acute respiratory failure Current Visit: Yes Status: Acute Impression: 36-year-old woman with a history of obstructive lung disease which phenotypically resembles asthma although I have no pulmonary function testing to correlate this with she is a former smoker with recurrent pneumonia who presents with shortness of breath and symptoms of lower and upper respiratory tract infection CT imaging is notable for acute infectious process including bilateral pulmonary nodules which Exie worsen the lower lobes right sided infiltrate and lymphadenopathy. In evaluating her prior imaging I do not see a consistent pattern or progressive pattern that would indicate an alternative diagnosis such as chronic inflammatory condition which can be mistaken for recurrent infection (e.g Sarcoidosis) although this is possible the pattern does not resemble chronic hypersensitivity pneumonitis. With regard to the recurrent nature of her pneumonia this is unclear I am dubious to check immune function disease immunoglobulin levels) while the patient has an acute infection as it is difficult to interpret those values. She does take a daily inhaled corticosteroid which has been linked with recurrent pneumonia although I do not see any acute need to necessarily stop this at this time. She may have an underlying rheumatological condition for which basic labs can be ordered. Clearly if it appears that his acute infectious process has worsened her obstructive lung disease and she would benefit from therapies aimed mitigating airway inflammation and hyperresponsiveness Recommendations: * Wean FiO2 to keep oxygen saturation greater than 89%; incentive spirometry and out of bed to chair and ambulation for lung recruitment * Send sputum culture and blood cultures if not already done so * I have added a respiratory infectious panel * Agree with empiric antimicrobials I am not convinced that both ceftriaxone and Levaquin are needed consider de-escalating to respiratory fluoroquinolone treatment can continue for 7 days pending culture and clinical course * I have added on basic connective to tissue disease workup although clinically there is not a lot of evidence of this outside of some chronic aches and pains that seemed to get worse throughout the day * I have added on an IgE level to further characterize eosinophilic variant asthma she does not have any evidence of peripheral eosinophilia * Agree with current broncho-dilator regimen she can be discharged back with her daily dose of Breo. * Transition to oral Steroid burst 40 mg prednisone by mouth daily 5 days * She will need repeat CT scan in 4-6 weeks if she has not had complete resolution she would be a good candidate for bronchoscopy at that time * Outpatient pulmonary follow-up by provider her with my card would like to see her in clinic within the next 4-6 weeks of discharge for discussion of CT scan and optimization of chronic obstructive lung disease and recurrent pneumonia Thank you for this consultation Qualifiers: Qualified Code(s): J96.00 - Acute respiratory failure, unspecified whether with hypoxia or hypercapnia (2) Community acquired pneumonia Current Visit: Yes Status: Acute (3) Severe persistent asthma Current Visit: Yes Status: Acute Qualifiers: Qualified Code(s): J45.50 - Severe persistent asthma, uncomplicated (4) Acute bronchitis and bronchiolitis Current Visit: No Status: Acute (5) DVT prophylaxis Current Visit: No Status: Acute History of Present Illness Consult date: 04/08/17 Requesting physician: Ernesto Esparza Reason for consult: pneumonia Chief complaint: Dyspnea History of present illness: This is a very pleasant 36-year-old woman who presented to the emergency room yesterday for worsening shortness of breath productive cough since Monday. She says that symptoms have progressively gotten worse and she initially started coughing up greenish yellow phlegm on Monday she states she had associated symptoms that included ear fullness sore throat and wheezing. She has been sweating during this time and feels like symptoms have been worsened with exposure to extremes in temperature outside. Curiously she has had several admissions for recurrent pneumonia dating back to at least 2011 I asked the patient about this and she said at one point she even underwent bronchoscopy although I do not see any record of this. She denies weight loss hemoptysis joint pains or rash. She is a former smoker who quit approximately a year ago before that she smoked for about 10 years 1-2 packs a day. She does not currently work she lives in a [place] area without exotic animals although she does have 2 outside dogs she does not work in the soil and has no other environmental or industrial exposures. She also denies sick contacts or recent travel. She has a history of asthma dating back to childhood which she said she "outgrew. She has also been diagnosed with "COPD" and is being maintained on a combination ICS/LABA that she takes daily along with a short acting beta agonist as needed. In general she still feels short of breath throughout the day but has "learned to live with it" In the ED a CT angiogram was performed negative for filling defect but notable for bilateral pulmonary nodules with predominantly right middle lobe infiltrate concerning for acute bronchopneumonia she has been started on treatment with ceftriaxone and Levaquin and given bronchodilators along with IV steroids. This is improved her symptoms markedly although she is still requiring oxygen which she does not at baseline. Past Med Surg Social Fam HX - Past Medical History Medical history: arthritis, asthma, COPD, GERD, hypertension, other Psychiatric history: anxiety, depression - Past Surgical History Surgical History: other - Social History Smoking Status: Current every day smoker Smokeless Tobacco Status: No Alcohol use: occasionally Drug use: marijuana, other - Family History Mother Adopted: No Family Member Ethnicity: Non- Living Status: Age at : 49 Cause of : overdose Hx Family Cardiac Disorders: Yes (heart enlargement) Medications and Allergies Buprenorphine HCl [Subutex] 8 mg SL BID 04/19/16 [History] Metoprolol [Lopressor] 25 mg PO BID 04/19/16 [History] Loratadine [Claritin] 10 mg PO DAILY 10/24/16 [History] Albuterol Neb [Proventil Neb] 2.5 mg IH DAILY #1 inhsol 10/25/16 [Rx] Albuterol Sulfate [Albuterol Inhaler] 2 puff IH Q6HR PRN #1 inhaler 10/25/16 [Rx ] Montelukast [Singulair] 10 mg PO DAILY #1 tablet 10/25/16 [Rx] BuPROPion SR (12 HR) [Wellbutrin SR] 300 mg PO BID 04/08/17 [History] Fluticasone/Vilanterol [Breo Ellipta 100-25 Mcg INH] 1 puff IH DAILY 04/08/17 [ History] Allergies No Known Allergies Allergy (Verified 03/03/17 23:21) All Systems: A 10-system review of systems was performed and is negative for pertinent findings except as documented above in the HPI. Physical Examination General appearance: no acute distress Eyes: nonicteric ENT: oropharynx moist Neck: supple Effort: normal Auscultation: bilateral: wheezes (Faint inspiratory wheeze most notable in the anterior lung ellison), rhonchi Cardiovascular: regular rate and rhythm Gastrointestinal: normoactive bowel sounds, non-tender Integumentary: normal Extremities: no cyanosis, no edema, no clubbing, pink and warm Musculoskeletal: no deformities normal mental status, non-focal exam mood appropriate Results - Laboratory Findings CBC and BMP: 04/08/17 04:21 04/08/17 04:21 PT/INR, D-dimer D-Dimer 656 ng/mLFEU (0-500) H 04/07/17 20:26 Abnormal lab findings: Abnormal lab results Lymphocytes # 0.4 K/mcL (0.6-4.6) L 04/08/17 04:21 D-Dimer 656 ng/mLFEU (0-500) H 04/07/17 20:26 Glucose 209 mg/dL (70-99) H 04/08/17 04:21 - Diagnostic Findings Chest x-ray: report reviewed, image reviewed CT scan - chest: report reviewed, image reviewed - Clinical Findings Intake & Output: Intake & Output 04/07/17 04/07/17 04/08/17 15:59 23:59 07:59 Intake Total 100 / 100 Output Total 0 / 0 Balance 100 / 100 Weight 63.049 kg Consult Discharge Plan - Plan Referrals: Kat Jurado DO [Primary Care Provider] -
[2017-04-08] MEDS: levoFLOXacin 750 MG TABLET PO SCH (08:20)
[2017-04-08] MEDS: MethylPREDNISolone 40 MG/ML VIAL IVP SCH ×2 (08:20→17:11)
[2017-04-08] MEDS: Budesonide/Formoterol 160/4.5 MDI IH SCH ×2 (11:27→21:19)
[2017-04-08] MEDS: Ipratropium/Albuterol Neb 3 ML IH PRN (11:30)
--- NOTE | 2017-04-08 14:42 | Internal Med Progress Note ---
Date of Encounter: 04/08/17 Time of Encounter: 14:38 - Assessment and plan (1) Acute respiratory failure with hypoxia Current Visit: No Status: Acute Assessment and plan: Acute hypoxic respiratory failure secondary to possible asthma/COPD exacerbation due to community-acquired pneumonia Consider other etiologies Continue Solu-Medrol Discontinue ceftriaxone and continue Levaquin DuoNeb's Oxygen therapy, pulmonary recommendations appreciated, cultures pending, lab work like IgE, ANAs, pending (2) Community acquired pneumonia Current Visit: Yes Status: Acute (3) Acute bronchitis and bronchiolitis Current Visit: No Status: Acute (4) GERD (gastroesophageal reflux disease) Current Visit: No Status: Acute Assessment and plan: Stable on omeprazole Qualifiers: Esophagitis presence: without esophagitis Qualified Code(s): K21.9 - Gastro -esophageal reflux disease without esophagitis (5) Severe persistent asthma Current Visit: Yes Status: Acute Qualifiers: Asthma complication type: with acute exacerbation Qualified Code(s): J45.51 - Severe persistent asthma with (acute) exacerbation - Subjective Interval history: Still feeling short of breath, oxygen saturations levels dropped to the 80s without oxygen, bringing up some yellowish phlegm, denies any chest pain, no abdominal pain, no dysuria, no fevers - Constitutional Vitals: Temp Pulse Resp BP Pulse Ox 97.8 F 95 16 124/79 96 04/08/17 11:19 04/08/17 11:19 04/08/17 11:32 04/08/17 11:19 04/08/17 11:32 - Head Head exam: Present: atraumatic, normocephalic - Eye Eye exam: Present: PERRL, conjuntiva pink, sclera anicteric Pupils: Present: PERRL - Neck Neck exam general surgery: Present: supple, trachea midline. Absent: lymphadenopathy - Respiratory Respiratory exam: Present: decreased breath sounds, CTAB, wheezes. Absent: accessory muscle use, rales, rhonchi - Cardiovascular Cardiovascular exam: Present: RRR, +S1, +S2. Absent: diastolic murmur, gallop, rubs, systolic murmur - GI/Abdominal GI/Abdominal exam: Present: normal bowel sounds, soft, no peritoneal signs. Absent: distended, tenderness - Extremities Exam Extremities exam: Present: warm, radial pulses palpable and symetrical. Absent : calf tenderness, cyanotic, pedal edema - Neurological Exam Neurological exam: Present: CN II-XII intact, oriented X3, no focal deficits. Absent: pronater drift, facial droop, speech deficit - Skin Skin exam: Present: dry, intact Internal Medicine: Result - Labs CBC & Chem 7: 04/08/17 04:21 04/08/17 04:21 Labs: Short CBC 04/08/17 Range/Units 04:21 WBC 6.1 (4.3-11.1) K/mcL Hgb 12.8 (11.5-15.4) g/dL Hct 38.4 (35.3-44.9) % Plt Count 184 (140-400) K/mcL Neutrophils # 5.5 (1.6-8.9) K/mcL BMP 04/08/17 04:21 Sodium 139 Potassium 3.8 Chloride 105 Carbon Dioxide 25 BUN 8 Creatinine 0.73 Glucose 209 H Calcium 8.9 - ABG Interpretation ABG results: PT/INR, D-dimer D-Dimer 656 ng/mLFEU (0-500) H 04/07/17 20:26 Consult Discharge Plan - Plan Referrals: Kat Jurado DO [Primary Care Provider] -
[2017-04-08] MEDS ORDERED: tiZANidine 4 MG TABLET PO PRN (17:49)
[2017-04-08] MEDS: BuPROPion SR (12 HR) 150 MG TABLET PO SCH (20:46)
[2017-04-08] MEDS: (Buprenorphine Hcl/Naloxone Hcl [Suboxone 8 Mg-2 Mg SL) SL SCH (20:48)
[2017-04-09] MEDS: MethylPREDNISolone 40 MG/ML VIAL IVP SCH ×2 (00:22→08:49)
[2017-04-09] MEDS: *HR* Enoxaparin 40 MG/0.4 ML SYRINGE SQ SCH (05:30)
[2017-04-09] MEDS: Budesonide/Formoterol 160/4.5 MDI IH SCH (07:49)
[2017-04-09] MEDS: Ipratropium/Albuterol Neb 3 ML IH PRN (07:49)
[2017-04-09 08:05] VITALS: BP 110/60
[2017-04-09 08:08] LABS: Adenovirus Not Detected (Not Detect); Bordetella Pertussis Not Detected (Not Detect); Chlamydophila pneumoniae Not Detected (Not Detect); Coronavirus 229E Not Detected (Not Detect); Coronavirus HKU1 Not Detected (Not Detect); Coronavirus NL63 Not Detected (Not Detect); Coronavirus OC43 Not Detected (Not Detect); Human Metapneumovirus Not Detected (Not Detect); Human Rhinovirus/Enterovirus Not Detected (Not Detect); Influenza A Subtype 2009 H1 Not Detected (Not Detect); Influenza A Untypeable Not Detected (Not Detect); Influenza B Not Detected (Not Detect); Mycoplasma pneumoniae Not Detected (Not Detect); Parainfluenza Virus 1 Not Detected (Not Detect); Parainfluenza Virus 2 Not Detected (Not Detect); Parainfluenza Virus 3 Not Detected (Not Detect); Parainfluenza Virus 4 Not Detected (Not Detect); Respiratory Syncytial Virus Not Detected (Not Detect)
--- NOTE | 2017-04-09 08:37 | Pulmonology Progress Note ---
Date of Encounter: 04/09/17 Time of Encounter: 08:37 Assessment and Plan (1) Acute respiratory failure Status: Acute This is secondary to pneumonia with asthma exacerbation wean FiO2 to keep saturation greater than 88% limited walking pulse oximetry study tired to discharge Qualifiers: Respiratory failure complication: unspecified whether with hypoxia or hypercapnia Qualified Code(s): J96.00 - Acute respiratory failure, unspecified whether with hypoxia or hypercapnia (2) Community acquired pneumonia Status: Acute Continue antimicrobial therapy with respiratory fluoroquinolone to complete 7 day course follow-up in clinic with repeat CT scan in 4-6 weeks (3) Severe persistent asthma Status: Acute Can resume home ICS/LABA and AARON will need 5 day burst of prednisone 40 mg daily Qualifiers: Asthma complication type: with acute exacerbation Qualified Code(s): J45.51 - Severe persistent asthma with (acute) exacerbation (4) Acute bronchitis and bronchiolitis Status: Acute (5) DVT prophylaxis Status: Acute Subjective Principal diagnosis: Pneumonia Interval history: She has done well over the last 24 hours oxygen has almost been weaned off breathing much improved less cough Objective PUL Vital signs: Last Vital Signs Temp 98 F 04/09/17 08:02 Pulse 73 04/09/17 08:02 Resp 18 04/09/17 08:02 BP 110/60 04/09/17 08:02 Pulse Ox 93 04/09/17 08:02 General appearance: no acute distress Auscultation: bilateral: rhonchi Cardiovascular: regular rate and rhythm Gastrointestinal: soft, non-tender normal mental status, non-focal exam Results - Laboratory Findings CBC and BMP: 04/08/17 04:21 04/08/17 04:21 PT/INR, D-dimer D-Dimer 656 ng/mLFEU (0-500) H 04/07/17 20:26 Abnormal lab findings: Abnormal lab results Lymphocytes # 0.4 K/mcL (0.6-4.6) L 04/08/17 04:21 D-Dimer 656 ng/mLFEU (0-500) H 04/07/17 20:26 Glucose 209 mg/dL (70-99) H 04/08/17 04:21 - Clinical Findings Intake & Output: Intake & Output 04/08/17 04/09/17 04/09/17 23:59 07:59 15:59 Intake Total 240 / 240 Output Total 0 / 0 Balance 240 / 240 Consult Discharge Plan - Plan Additional Instructions: Follow-up with primary care physician within the next 7 days. Follow up with the pulmonary service within the next 1-2 weeks. Continue prednisone taper. Complete 5 more days of Levaquin. Referrals: Kat Jurado DO [Primary Care Provider] - Prescriptions: levoFLOXacin [Levaquin] 750 mg PO DAILY #5 tablet predniSONE [PredniSONE] 10 mg PO DAILY 20 Days
[2017-04-09] MEDS: levoFLOXacin 750 MG TABLET PO SCH (08:49)
[2017-04-09] MEDS: BuPROPion SR (12 HR) 150 MG TABLET PO SCH (08:49)
[2017-04-09] MEDS: (Buprenorphine Hcl/Naloxone Hcl [Suboxone 8 Mg-2 Mg SL) SL SCH (08:55)
[2017-04-09] MEDS ORDERED: Lisinopril 20 MG TABLET PO SCH (09:00)
[2017-04-09] MEDS ORDERED: Loratadine 10 MG TABLET PO SCH (09:00)
--- NOTE | 2017-04-09 10:18 | Discharge Summary ---
Date of Encounter: 04/09/17 Time of Encounter: 10:16 - Discharge Diagnosis (1) Acute respiratory failure with hypoxia Priority: Primary Status: Acute Comments: Acute hypoxic respiratory failure secondary to possible asthma/COPD exacerbation due to community-acquired pneumonia (2) Community acquired pneumonia Priority: Primary Status: Acute (3) Acute bronchitis and bronchiolitis Priority: Primary Status: Acute (4) GERD (gastroesophageal reflux disease) Priority: Secondary Status: Acute Qualifiers: Esophagitis presence: without esophagitis Qualified Code(s): K21.9 - Gastro -esophageal reflux disease without esophagitis (5) Severe persistent asthma Priority: Primary Status: Acute Qualifiers: Asthma complication type: with acute exacerbation Qualified Code(s): J45.51 - Severe persistent asthma with (acute) exacerbation - Discharge Medications Prescriptions: levoFLOXacin [Levaquin] 750 mg PO DAILY #5 tablet predniSONE [PredniSONE] 10 mg PO DAILY 20 Days Home Medications: Metoprolol [Lopressor] 25 mg PO BID 04/19/16 [History] Loratadine [Claritin] 10 mg PO DAILY 10/24/16 [History] Albuterol Sulfate [Albuterol Inhaler] 2 puff IH Q6HR PRN #1 inhaler 10/25/16 [Rx ] Montelukast [Singulair] 10 mg PO DAILY #1 tablet 10/25/16 [Rx] Albuterol Neb [Proventil Neb] 2.5 mg IH Q6H PRN 04/08/17 [History] BuPROPion SR (12 HR) [Wellbutrin SR] 150 mg PO BID 04/08/17 [History] Buprenorphine HCl/Naloxone HCl [Suboxone 8 mg-2 mg Sl Film] 1 film SL BID [History] Fluticasone Propionate Nasal [Flonase] 50 mcg NS DAILY 04/08/17 [History] Fluticasone/Vilanterol [Breo Ellipta 100-25 Mcg INH] 1 puff IH DAILY 04/08/17 [ History] Lisinopril [Zestril] 20 mg PO DAILY 04/08/17 [History] Omeprazole [PriLOSEC] 40 mg PO DAILY 04/08/17 [History] Tizanidine HCl [Zanaflex] 4 mg PO TID PRN 04/08/17 [History] levoFLOXacin [Levaquin] 750 mg PO DAILY #5 tablet 04/09/17 [Rx] predniSONE [PredniSONE] 10 mg PO DAILY 20 Days 04/09/17 [Rx] Allergies/Adverse Reactions: Allergies No Known Allergies Allergy (Verified 03/03/17 23:21) Date of admission: 04/08/17 14:57 Primary care physician: Kat Jurado DO - Patient Status Disposition: Home, Self-Care Condition: Good Overall status at discharge: patient is progressing back to baseline - Discharge Instructions Follow Up With: Kat Jurado DO [Primary Care Provider] - Additional Instructions: Follow-up with primary care physician within the next 7 days. Follow up with the pulmonary service within the next 1-2 weeks. Continue prednisone taper. Complete 5 more days of Levaquin. - Diet and Activity Activity: increase activity as tolerated Diet: regular diet Hospital course: Ms. Remy is a 36 year old female with a past medical history of asthma, COPD not oxygen dependent, GERD, hypertension, depression, who presented to the emergency room for worsening shortness of breath productive cough since Monday. She says that symptoms have progressively gotten worse and she initially started coughing up greenish yellow phlegm on Monday she stated she had associated symptoms that included ear fullness sore throat and wheezing. She had been sweating during this time and feels like symptoms have been worsened with exposure to extremes in temperature outside. Curiously she has had several admissions for recurrent pneumonia dating back to at least 2011 , she underwent a bronchoscopy although there is no record of this. She denied weight loss hemoptysis joint pains or rash. She is a former smoker who quit approximately a year ago before that she smoked for about 10 years 1-2 packs a day. She does not currently work [place] without exotic animals although she does have 2 outside dogs she does not work in the soil and has no other environmental or industrial exposures. She also denied sick contacts or recent travel. She has a history of asthma dating back to childhood which she said she "outgrew. She has also been diagnosed with "COPD" and is being maintained on a combination ICS/LABA that she takes daily along with a short acting beta agonist as needed. In the ED a CT angiogram was performed negative for filling defect but notable for bilateral pulmonary nodules with predominantly right middle lobe infiltrate concerning for acute bronchopneumonia , showed shows bilateral pulmonary infiltrates right greater than left with mild mediastinal and right hiliar adenopathy Started treatment with ceftriaxone and Levaquin and given bronchodilators along with IV steroids. Ceftriaxone was discontinued, and patient feels better today did not desaturate any longer during walking and is a stable to go home. Pulmonary service was consulted. Lab work is pending including ANAs, angiotensin converting enzyme, IgE which will be followed by the pulmonary service as an outpatient - Time Spent with Patient Total time spent providing and/or coordinating discharge services: Greater than 30 minutes (40 min) - Constitutional Vitals: Temp Pulse Resp BP Pulse Ox 98 F 73 18 110/60 93 04/09/17 08:02 04/09/17 08:02 04/09/17 08:02 04/09/17 08:02 04/09/17 08:02 General appearance: Present: A&O X 3 - Head Head exam: Present: atraumatic, normocephalic - Eye Eye exam: Present: PERRL, conjuntiva pink, sclera anicteric Pupils: Present: PERRL - Neck Neck exam general surgery: Present: supple, trachea midline. Absent: lymphadenopathy - Respiratory Respiratory exam: Present: decreased breath sounds (Diffuse rhonchi), CTAB, rhonchi. Absent: accessory muscle use, rales, wheezes - Cardiovascular Cardiovascular exam: Present: RRR, +S1, +S2. Absent: diastolic murmur, gallop, rubs, systolic murmur - GI/Abdominal GI/Abdominal exam: Present: normal bowel sounds, soft, no peritoneal signs. Absent: distended, tenderness - Extremities Exam Extremities exam: Present: warm, radial pulses palpable and symetrical. Absent : calf tenderness, cyanotic, pedal edema - Neurological Exam Neurological exam: Present: CN II-XII intact, oriented X3, no focal deficits. Absent: pronater drift, facial droop, speech deficit - Skin Skin exam: Present: dry, intact
--- NOTE | 2017-04-10 09:44 | Electrocardiograph Report ---
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
--- NOTE | 2017-04-10 09:44 | Electrocardiograph Report ---
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
[2017-04-12 08:01] LABS: ANA IgG by ELISA NONE DETECTED (None Detected); Immunoglobulin E 203 kU/L (<=214)
== END 2017-04-09 11:25 | disposition home or self-care (01) | DRG 140 ==
LOC: 3ANU 17:36 → EMEROO 17:36 → 3ANU 04-08 01:20
PROVIDERS: ADMIT Internal Medicine Endocrinology, Diabetes & Metabolism; ATTEND Internal Medicine

== ENCOUNTER 2018-12-13 09:37 | Observation (INO) ==
[2018-12-13] MEDS ORDERED: 0.9 % Sodium Chloride 1,000 ML IVC ONE ×2 (10:14→13:07)
--- NOTE | 2018-12-13 10:41 | Emergency Department Note ---
Disposition Clinical Impression: Weakness Pericarditis Qualifiers: Pericarditis type: unspecified type Chronicity: acute Qualified Code(s): I30.9 - Acute pericarditis, unspecified Disposition: Admitted As Inpatient Condition: Fair Time of Disposition: 13:12 Weakness HPI - General Chief complaint: ED General Medical Stated complaint: hypoglycemia Time Seen by Provider: 12/13/18 09:55 Source: patient Mode of arrival: ambulatory Limitations: no limitations Nursing Notes Reviewed: Yes Vital Signs Reviewed: Yes - History of Present Illness HPI Narrative: Patient presents to the ED with the chief complaint of weakness. Patient states that this morning she just felt very weak, tired, and clammy. She reports that she is been sick for about the last week with cough, congestion and shortness of breath. She does smoke. She denies any other medical conditions. EMS arrived this morning and found her blood sugar to be 44, they administered oral glucose and after rechecking it was 88. Patient reports that she still does not feel well. She has no known fever. No current chest pain. States she was having some pleuritic chest pain earlier in the week. No abdominal pain. She has had some nausea but no vomiting or diarrhea. No flank pain. No urinary or vaginal complaints. Pain Scale: 5 - Related Data Home Medications Medication Instructions Recorded Confirmed RX: Albuterol Neb [Proventil Neb] 2.5 mg IH Q6H PRN 04/08/17 12/13/18 RX: Buprenorphine HCl/Naloxone HCl 1 film SL BID 04/08/17 12/13/18 [Suboxone 8 mg-2 mg Sl Film] RX: Lisinopril [Zestril] 10 mg PO DAILY 04/08/17 12/13/18 BuPROPion XL (24 HR) [Wellbutrin 150 mg PO DAILY 12/13/18 12/13/18 XL] Metoprolol XL (24 HR) Succ [Toprol 50 mg PO DAILY 12/13/18 12/13/18 XL] Previous Rx's Medication Instructions Recorded RX: Albuterol Sulfate [Albuterol 2 puff IH Q6HR PRN #1 inhaler 10/25/16 Inhaler] Allergies Allergy/AdvReac Type Severity Reaction Status Date / Time No Known Allergies Allergy Verified 03/03/17 23:21 Review of Systems: As reviewed in the HPI. All other systems reviewed are negative or normal. Review of Systems: As Per HPI Limitations: ROS unobtainable due to patients medical condition Past Medical History - Past Medical History Attestation: Yes The following information was validated with the patient. Source: patient Medical history: Reports: arthritis, asthma, COPD, GERD, hypertension, seizures, other Surgical history: Reports: other Psychiatric history: Reports: anxiety, depression REHAB SPECIALIST history: Reports: no REHAB SPECIALIST history - Social History Smoking Status: Current every day smoker Smokeless Tobacco Status: No Alcohol use: Reports: occasionally Drug use: Reports: marijuana Physical Exam CONSTITUTIONAL: [well appearing, alert and in no acute distress] EYES: [EOMI, clear conjunctiva, PERRLA] HENT: [Normocephalic, atraumatic, moist mucus membranes, normal oropharynx] NECK: [normal inspection, full ROM, trachea midline, no obvious swelling] PULMONARY: [normal lung sounds bilaterally, normal chest rise and fall, no respiratory distress or stridor, no wheezes, no rales, no rhonchi CARDIOVASCULAR: [regular rate, regular rhythm, normal heart sounds, no murmurs, distal extremities are warm and well perfused] GASTROINSTESTINAL: [soft, non-tender, non-rigid, non-distended, no guarding, no rebound, normal bowel sounds] GENITOURINARY/RECTAL: [deferred] NEUROLOGIC: [Alert, oriented x3, normal speech, moves all extremities] EXTREMITIES: [Normal inspection, full ROM, no tenderness, no pedal edema, normal capillary refill] MUSCULOSKELETAL: [no gross deformities, atraumatic] SKIN: [No cyanosis, no diaphoresis, normal color, warm, no rash] PSYCHIATRIC: [Slightly depressed, flat affect, poor eye contact] - General General appearance: alert, in no apparent distress Course Course Narrative: Patient presenting with generalized weakness and hypoglycemia. She is not diabetic. She is been sick for about a week. Upon my evaluation, the patient's oxygen saturation was 86% on room air with good waveform. We will consider infectious etiologies such as pneumonia, but we will also add on a d-dimer due to her hypoxia and symptomatic complaints of shortness of breath and intermittent chest pain - Reevaluation(s) Reevaluation #1: patient feeling slightly better but still run down and tired. spoke with cards and they rec either in vs outpatient echo. discussed with patient and she did not feel well enough to go home so we will admit. admitted to hospitalist service for echo per cards recommendation. Vital Signs Temperature 97.8 F 12/13/18 09:44 Pulse Rate 77 12/13/18 09:44 Respiratory Rate 16 12/13/18 09:44 Blood Pressure 125/82 12/13/18 09:44 O2 Sat by Pulse Oximetry 96 12/13/18 09:44 Temperature 97.8 F 12/13/18 09:44 Pulse Rate 77 12/13/18 09:44 Respiratory Rate 16 12/13/18 09:44 Blood Pressure 125/82 12/13/18 09:44 O2 Sat by Pulse Oximetry 96 12/13/18 09:44 Oxygen Delivery Oxygen Delivery Room Air Weakness - Medical Records Medical records reviewed: Yes I reviewed the patient's medical records. - Lab Data Lab results reviewed: Yes I reviewed the patient's lab results. Result diagrams: 12/13/18 10:30 12/13/18 10:30 Lab Results 12/13/18 12/13/18 12/13/18 Range/Units 09:43 10:30 10:30 WBC 5.1 (4.3-11.1) K/mcL RBC 4.25 (3.82-4.97) M/mcL Hgb 13.9 (11.5-15.4) g/dL Hct 42.1 (35.3-44.9) % MCV 99.1 (83.0-100.0) fL MCH 32.7 (28.0-33.3) pg MCHC 33.0 (31.6-35.5) g/dL RDW 13.2 (11.5-14.5) % Plt Count 136 L (140-400) K/mcL MPV 8.6 L (9.4-12.4) fL Immature Gran % 0.2 (0-4) % Seg Neutrophils % 76.1 % Lymphocytes % 17.4 % Monocytes % 4.9 % Eosinophils % 0.4 % Basophils % 1.0 % Neutrophils # 3.9 (1.6-8.9) K/mcL Lymphocytes # 0.9 (0.6-4.6) K/mcL Monocytes # 0.3 (0.0-1.3) K/mcL Eosinophils # 0.0 (0.0-0.6) K/mcL Basophils # 0.1 (0.0-0.2) K/mcL D-Dimer 365 (0-500) ng/mLFEU Sodium (136-145) mEq/L Potassium (3.5-5.1) mEq/L Chloride (98-107) mEq/L Carbon Dioxide (23-29) mEq/L BUN (6-20) mg/dL Creatinine (0.60-1.20) mg/dL Est GFR ( Amer) (> 60) Est GFR (Non-Af Amer) (> 60) BUN/Creatinine Ratio (6-26) Glucose (70-105) mg/dL POC Glucose 88 (70-99) mg/dL Calculated Osmolality (280-300) Lactic Acid (0.5-2.2) mmol/L Calcium (8.6-10.3) mg/dL Troponin I (< 0.04) ng/mL 12/13/18 12/13/18 12/13/18 Range/Units 10:30 10:30 12:30 WBC (4.3-11.1) K/mcL RBC (3.82-4.97) M/mcL Hgb (11.5-15.4) g/dL Hct (35.3-44.9) % MCV (83.0-100.0) fL MCH (28.0-33.3) pg MCHC (31.6-35.5) g/dL RDW (11.5-14.5) % Plt Count (140-400) K/mcL MPV (9.4-12.4) fL Immature Gran % (0-4) % Seg Neutrophils % % Lymphocytes % % Monocytes % % Eosinophils % % Basophils % % Neutrophils # (1.6-8.9) K/mcL Lymphocytes # (0.6-4.6) K/mcL Monocytes # (0.0-1.3) K/mcL Eosinophils # (0.0-0.6) K/mcL Basophils # (0.0-0.2) K/mcL D-Dimer (0-500) ng/mLFEU Sodium 137 (136-145) mEq/L Potassium 3.8 (3.5-5.1) mEq/L Chloride 100 (98-107) mEq/L Carbon Dioxide 22 L (23-29) mEq/L BUN 13 (6-20) mg/dL Creatinine 0.72 (0.60-1.20) mg/dL Est GFR ( Amer) > 60 (> 60) Est GFR (Non-Af Amer) > 60 (> 60) BUN/Creatinine Ratio 18 (6-26) Glucose 75 (70-105) mg/dL POC Glucose (70-99) mg/dL Calculated Osmolality 283 (280-300) Lactic Acid 1.7 0.8 (0.5-2.2) mmol/L Calcium 9.0 (8.6-10.3) mg/dL Troponin I (< 0.04) ng/mL 12/13/18 Range/Units 12:30 WBC (4.3-11.1) K/mcL RBC (3.82-4.97) M/mcL Hgb (11.5-15.4) g/dL Hct (35.3-44.9) % MCV (83.0-100.0) fL MCH (28.0-33.3) pg MCHC (31.6-35.5) g/dL RDW (11.5-14.5) % Plt Count (140-400) K/mcL MPV (9.4-12.4) fL Immature Gran % (0-4) % Seg Neutrophils % % Lymphocytes % % Monocytes % % Eosinophils % % Basophils % % Neutrophils # (1.6-8.9) K/mcL Lymphocytes # (0.6-4.6) K/mcL Monocytes # (0.0-1.3) K/mcL Eosinophils # (0.0-0.6) K/mcL Basophils # (0.0-0.2) K/mcL D-Dimer (0-500) ng/mLFEU Sodium (136-145) mEq/L Potassium (3.5-5.1) mEq/L Chloride (98-107) mEq/L Carbon Dioxide (23-29) mEq/L BUN (6-20) mg/dL Creatinine (0.60-1.20) mg/dL Est GFR ( Amer) (> 60) Est GFR (Non-Af Amer) (> 60) BUN/Creatinine Ratio (6-26) Glucose (70-105) mg/dL POC Glucose (70-99) mg/dL Calculated Osmolality (280-300) Lactic Acid (0.5-2.2) mmol/L Calcium (8.6-10.3) mg/dL Troponin I < 0.03 (< 0.04) ng/mL - Radiology Data Radiology results reviewed: Yes I reviewed the patient's radiology results. - EKG Data EKG attestation: Yes I reviewed and interpreted this EKG. EKG results narrative: sinus rhythm, rate 67, normal axis, diffuse ST segment elevation vs J point elevation with WI elevation in aVR c/w pericarditis. Attestation Statement - Attestation Attestation: Resident Attestation: I examined this patient and my medical decision making was reviewed with the Resident Physician. I agree with the documented findings, disposition and treatment plan as described except to the extent set forth below. We independently had gcwe-by-ecve contact with the patient. Patient presents emergency department for evaluation of weakness and chest pain. Patient recently treated for asthma exacerbation with antibiotics and steroids. Finished approximately 1 week ago. Patient woke up today and walked to the kitchen where she had to stop the sulfa secondary to being tired and short of breath. Patient states that bilateral arms felt heavy and had diaphoresis. Patient's initial EKG concerning for ST elevations as well as WI depressions. This was discussed with interventional cardiology and the patient has EKG consistent with pericarditis. No need for catheter lab intervention. Patient's lab work is returned in the patient's d-dimer as well as troponin negative. I did discuss with the interventionalists overall disposition. Patient is reliable and has good follow-up and get an echo within the next couple of weeks she can be discharged. There is concern into the overall symptoms were patient follow-up, the patient be admitted for an echo and continued monitoring.
[2018-12-13 10:42] LABS: Basophils # 0.1 K/mcL (0.0-0.2); Eosinophils % 0.4 %; Hematocrit 42.1 % (35.3-44.9); Hemoglobin 13.9 g/dL (11.5-15.4); Immature Granulocytes % 0.2 % (0-4); Lymphocytes # 0.9 K/mcL (0.6-4.6); Lymphocytes % 17.4 %; Mean Corpuscular Hemoglobin 32.7 pg (28.0-33.3); Mean Corpuscular Volume 99.1 fL (83.0-100.0); Mean Platelet Volume 8.6 fL (9.4-12.4); Monocytes # 0.3 K/mcL (0.0-1.3); Monocytes % 4.9 %; Neutrophils # 3.9 K/mcL (1.6-8.9); Platelet Count 136 K/mcL (140-400); Red Blood Count 4.25 M/mcL (3.82-4.97); Red Cell Distribution Width 13.2 % (11.5-14.5); Segmented Neutrophils % 76.1 %
[2018-12-13 11:01] LABS: BUN/Creatinine Ratio 18 (6-26); Blood Urea Nitrogen 13 mg/dL (6-20); Carbon Dioxide 22 mEq/L (23-29); Chloride 100 mEq/L (98-107); Glucose 75 mg/dL (70-105); Osmolality,Calculated 283 (280-300); Potassium 3.8 mEq/L (3.5-5.1); Sodium 137 mEq/L (136-145); eGFR For Non-African Americans > 60 (> 60)
[2018-12-13] MEDS ORDERED: Ketorolac 15 MG/ML VIAL IVP ONE (11:44)
[2018-12-13] MEDS ORDERED: Naloxone 0.4 MG/ML INJ IVP PRN (14:28)
[2018-12-13] MEDS ORDERED: Ketorolac 15 MG/ML VIAL IVP PRN (14:28)
[2018-12-13] MEDS ORDERED: Ondansetron 4 MG/2 ML VIAL IVP PRN (14:28)
[2018-12-13 14:54] LABS: Bilirubin,Urine Small (Negative); Blood,Urine Negative (Negative); Clarity,Urine Cloudy (Clear); Color,Urine Dark Yellow (Yellow); Glucose,Urine (UA) Normal (Normal); Ketones,Urine 80 mg/dL (Negative); Leukocyte Esterase,Urine Trace (Negative); Nitrite,Urine Negative (Negative); PH,Urine 5.5 pH Units (5.0-8.0); Protein,Urine 100 mg/dL (Neg-Trace); Specific Gravity,Urine 1.024 (1.010-1.025); Urobilinogen,Urine Normal (Normal)
[2018-12-13 15:02] LABS: Bacteria,Urine Few per hpf (None-Few); Hyaline Casts,Urine None Seen per lpf (None-Few); RBC,Urine 0-3 per hpf (0-3); Squamous Epithelial Cell,Urine Many per lpf (None-Few)
[2018-12-13] MEDS ORDERED: Albuterol 2.5 MG/3 ML NEBULIZER IH PRN (15:26)
--- NOTE | 2018-12-13 15:41 | Internal Med History&Physical ---
Date of Encounter: 12/13/18 Time of Encounter: 15:29 Internal Medicine - H&P: HPI Chief complaint: weakness Admitted From: Emergency Dept Plans for Post Hospital Care: Home History of present illness: Ms. Remy is a 38 year old female past medical history of asthma COPD GERD hypertension seizures current every day tobacco smoker as well as marijuana. Patient presented to [facility] ED with complaints of generalized weakness and hypoglycemia patient is not diabetic. Patient states that she has been sick for approximately one week with upper respiratory infection. She denies any fevers chills nausea vomiting or diarrhea. States she has had good oral intake. Patient's blood glucose was 44 upon arrival of EMS and she was given dextrose which increased her blood glucose to 66. It appears She continues to smoke ap proximately a half a pack a day and occasional marijuana use-she smokes marijuana approximately 3 days ago. Currently on Suboxone states she used to use opioids in the past however it has been over a year since she last used - denies any IV drug use Lab work was obtained which was unremarkable CXR with no acute process EKG was obtained which did show diffuse ST segment elevation concerns for pericarditis. ER physician did speak with cardiology concerning consult and admission. Recommending echo. Patient will be admitted for further work up and evaluation currently patient denies any chest pain she states she feels much better than when she first arrived, however continues to feel weak. Currently she is hemodynamically stable this time Past Med Surg Social Fam HX - Past Medical History Medical history: arthritis, asthma, COPD, GERD, hypertension, seizures, other Additional medical history: scoliosis Psychiatric history: anxiety, depression - Past Surgical History Surgical History: other Additional surgical history: TUBAL - Social History Smoking Status: Current every day smoker Smokeless Tobacco Status: No Alcohol use: occasionally Drug use: marijuana - Family History Mother Adopted: No Family Member Ethnicity: Non- Living Status: Hx Family Cardiac Disorders: Yes (heart enlargement) Internal Medicine - H&P: Meds Albuterol Sulfate [Albuterol Inhaler] 2 puff IH Q6HR PRN #1 inhaler 10/25/16 [ Rx] Albuterol Neb [Proventil Neb] 2.5 mg IH Q6H PRN 04/08/17 [History] Buprenorphine HCl/Naloxone HCl [Suboxone 8 mg-2 mg Sl Film] 1 film SL BID 04/08/17 [History] Lisinopril [Zestril] 10 mg PO DAILY 04/08/17 [History] BuPROPion XL (24 HR) [Wellbutrin XL] 150 mg PO DAILY 12/13/18 [History] Metoprolol XL (24 HR) Succ [Toprol XL] 50 mg PO DAILY 12/13/18 [History] Allergy/AdvReac Type Severity Reaction Status Date / Time No Known Allergies Allergy Verified 03/03/17 23:21 All Systems PM: A 10-system review of systems was performed and is negative for pertinent findings except as documented above in the HPI. - Constitutional Constitutional: no chills, no fever(s), no night sweats - EENT Eyes: no change in vision, no discharge, no pain, no photophobia Ears: no ear discharge, no ear pain, no tinnitus Nose, mouth and throat: no dysphagia, no nasal discharge, no neck pain, no sore throat - Cardiovascular Cardiovascular ROS IM: no chest pain, no diaphoresis, no dyspnea, no lightheadedness, no palpitations, no syncope - Respiratory Respiratory: cough, pain with cough - Gastrointestinal Gastrointestinal: no abdominal pain, no diarrhea, no hematemesis, no hematochezia, no melena, no nausea, no vomiting - Genitourinary Genitourinary: no change in urinary stream, no dysuria, no flank pain, no hematuria - Musculoskeletal Musculoskeletal ROS IM: no numbness, no tingling - Integumentary Integumentary IM: no rash, no unusual bruising - Neurological Neurological ROS: no confusion, no convulsions, no focal weakness, no numbness, no tingling, no tremor(s) - Hematologic/Lymphatic Hematologic/Lymphatic: no easy bruising - Constitutional Vitals: Temp Pulse Resp BP Pulse Ox 98.6 F 72 20 113/70 93 12/13/18 15:25 12/13/18 15:25 12/13/18 15:25 12/13/18 15:25 12/13/18 15:25 General appearance: Present: A&O X 3 Exam: . - Head Head exam: Present: atraumatic, normocephalic - Eye Eye exam: Present: PERRL, conjuntiva pink, sclera anicteric Pupils: Present: PERRL - Neck Neck exam general surgery: Present: supple, trachea midline. Absent: lymphadenopathy - Respiratory Respiratory exam: Present: CTAB. Absent: accessory muscle use, rales, rhonchi, wheezes - Cardiovascular Cardiovascular exam: Present: RRR, +S1, +S2. Absent: diastolic murmur, gallop, rubs, systolic murmur - GI/Abdominal GI/Abdominal exam: Present: normal bowel sounds, soft, no peritoneal signs. Absent: distended, tenderness - Extremities Exam Extremities exam: Present: warm, radial pulses palpable and symmetrical. Absent: calf tenderness, cyanotic, pedal edema - Neurological Exam Neurological exam: Present: CN II-XII intact, oriented X3, no focal deficits. Absent: pronater drift, facial droop, speech deficit - Skin Skin exam: Present: dry, intact Internal Med - H&P Results - Labs CBC & Chem 7: 12/13/18 10:30 12/13/18 10:30 Labs: Short CBC 12/13/18 Range/Units 10:30 WBC 5.1 (4.3-11.1) K/mcL Hgb 13.9 (11.5-15.4) g/dL Hct 42.1 (35.3-44.9) % Plt Count 136 L (140-400) K/mcL Neutrophils # 3.9 (1.6-8.9) K/mcL BMP 12/13/18 10:30 Sodium 137 Potassium 3.8 Chloride 100 Carbon Dioxide 22 L BUN 13 Creatinine 0.72 Glucose 75 Calcium 9.0 Cardiac Enzymes 12/13/18 Range/Units 12:30 Troponin I < 0.03 (< 0.04) ng/mL Urine 12/13/18 Range/Units 14:17 Urine Color Dark Yellow (Yellow) Urine Clarity Cloudy A (Clear) Urine pH 5.5 (5.0-8.0) pH Units Ur Specific [place] 1.024 (1.010-1.025) Urine Protein 100 H (Neg-Trace) mg/dL Urine Glucose (UA) Normal (Normal) mg/dL - EKG Data Prior EKG available for review: yes When compared to previous EKG: there are significant changes EKG comments: 12/13/18 15:[address] elevations - Impressions ITS Impressions Chest X-Ray 12/13/18 10:14 IMPRESSION: 1. No radiographic finding to account for patient's shortness of breath. D/ / Shahriar Gunderson MD / Shahriar Gunderson MD Interpreting Provider: Shahriar Gunderson MD - Assessment and Plan (1) Pericarditis Current Visit: Yes Status: Acute Assessment and plan: 1 presented with weakness history of a respiratory infection she has had some mild chest discomfort with coughing. EKG does show diffuse ST elevation throughout leads-no friction rub noted We will obtain cardiac echo Cardiology has been consulted Continuous cardiac monitoring NSAIDs for pain Qualifiers: Pericarditis type: unspecified type Chronicity: acute Qualified Code(s): I30.9 - Acute pericarditis, unspecified (2) Weakness Current Visit: Yes Status: Acute Assessment and plan: 1 patient has been experiencing upper respiratory infection has been weak she states that she has had good oral intake-she did have a hypoglycemic episode which may be contributing to her weakness We will continue to monitor electrolytes and glucose closely Obtain respiratory infectious historical guide CBC-no fevers at this time (3) Hypertension Current Visit: No Status: Chronic Assessment and plan: 1 continue with lisinopril and metoprolol Qualifiers: Hypertension type: essential hypertension Qualified Code(s): I10 - Essential (primary) hypertension (4) Hypoglycemia Current Visit: Yes Status: Acute Assessment and plan: 1 patient's glucose was 44 when EMS arrived was given dextrose and glucose improved to 66 we will continue to monitor closely patient states that she is not diabetic Check A1c (5) Nicotine addiction Current Visit: Yes Status: Acute Assessment and plan: Encourage patient to stop smoking patient states she smokes a half a pack a day for the past 15 years offer nicotine patch patient declined at this time Qualifiers: Nicotine product type: cigarettes Substance use status: uncomplicated Qualified Code(s): F17.210 - Nicotine dependence, cigarettes, uncomplicated (6) Marijuana smoker Current Visit: Yes Status: Acute Assessment and plan: 1 patient states that she has smokes marijuana frequently last smoked 3 days ago denies any other drug use however is currently on Suboxone we will check a tox screen - Time Spent With Patient Total time spent is greater than 50% in coordination of care (as documented) at patient's floor/unit and/or counseling patient:
[2018-12-13 20:52] LABS: Amphetamine Screen,Urine Negative ng/mL (Cutoff=1000); Barbiturate Screen,Urine Negative ng/mL (Cutoff=200); Benzodiazepines Screen,Urine Negative ng/mL (Cutoff=200); Cannabinoid Screen,Urine Positive ng/mL (Cutoff = 50); Cocaine Screen,Urine Negative ng/mL (Cutoff= 300); Opiate Screen,Urine Negative ng/mL (Cutoff=300); Phencyclidine Screen,Urine Negative ng/mL (Cutoff=25)
[2018-12-13] MEDS: Buprenorphine Hcl/Naloxone Hcl [Suboxone 8 Mg-2 Mg S SL SCH (21:24)
--- NOTE | 2018-12-13 23:22 | Electrocardiograph Report ---
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
[2018-12-14 00:52] LABS: Adenovirus Not Detected (Not Detect); Bordetella Pertussis Not Detected (Not Detect); Chlamydophila pneumoniae Not Detected (Not Detect); Coronavirus 229E Not Detected (Not Detect); Coronavirus HKU1 Not Detected (Not Detect); Coronavirus NL63 Not Detected (Not Detect); Coronavirus OC43 Not Detected (Not Detect); Human Metapneumovirus Not Detected (Not Detect); Human Rhinovirus/Enterovirus Not Detected (Not Detect); Influenza A Subtype 2009 H1 Not Detected (Not Detect); Influenza A Untypeable Not Detected (Not Detect); Influenza B Not Detected (Not Detect); Mycoplasma pneumoniae Not Detected (Not Detect); Parainfluenza Virus 1 Not Detected (Not Detect); Parainfluenza Virus 2 Not Detected (Not Detect); Parainfluenza Virus 3 Not Detected (Not Detect); Parainfluenza Virus 4 Not Detected (Not Detect); Respiratory Syncytial Virus Not Detected (Not Detect)
[2018-12-14 00:52] LABS: Basophils % 0.8 %; Eosinophils # 0.1 K/mcL (0.0-0.6); Eosinophils % 2.8 %; Hematocrit 36.1 % (35.3-44.9); Lymphocytes # 1.4 K/mcL (0.6-4.6); Lymphocytes % 34.4 %; Mean Corpuscular HGB Conc 33.8 g/dL (31.6-35.5); Mean Corpuscular Hemoglobin 33.1 pg (28.0-33.3); Mean Corpuscular Volume 97.8 fL (83.0-100.0); Monocytes # 0.3 K/mcL (0.0-1.3); Monocytes % 7.3 %; Neutrophils # 2.2 K/mcL (1.6-8.9); Platelet Count 122 K/mcL (140-400); Red Blood Count 3.69 M/mcL (3.82-4.97); Red Cell Distribution Width 12.9 % (11.5-14.5); Segmented Neutrophils % 54.7 %
[2018-12-14 00:53] LABS: Hemoglobin 12.2 g/dL (11.5-15.4)
[2018-12-14 01:12] LABS: BUN/Creatinine Ratio 26 (6-26); Blood Urea Nitrogen 18 mg/dL (6-20); Carbon Dioxide 27 mEq/L (23-29); Chloride 103 mEq/L (98-107); Glucose 142 mg/dL (70-105); Magnesium 1.7 mg/dL (1.6-2.6); Osmolality,Calculated 284 (280-300); Potassium 3.9 mEq/L (3.5-5.1); Sodium 135 mEq/L (136-145); eGFR For Non-African Americans > 60 (> 60)
[2018-12-14] MEDS: Buprenorphine Hcl/Naloxone Hcl [Suboxone 8 Mg-2 Mg S SL SCH (08:50)
[2018-12-14] MEDS ORDERED: Metoprolol XL (24 HR) Succ 50 MG TAB.ER.24H PO SCH (09:00)
[2018-12-14] MEDS ORDERED: BuPROPion XL (24 HR) 150 MG TABLET PO SCH (09:00)
--- NOTE | 2018-12-14 09:20 | Cardiology Consult Note ---
<Zohaib Rao - Last Filed: 12/14/18 13:07> Date of Encounter: 12/14/18 Time of Encounter: 09:13 Assessment and Plan (1) Pericarditis Current Visit: Yes Status: Acute Patient with EKG findings consistent with acute pericarditis status post recent upper respiratory infection. Serial troponins negative 3 ESR 2 Respiratory infection panel negative Echo revealed LVEF 60-65%, normal LV chamber size, wall thickness and function, normal left ventricular diastolic function, normal right ventricular structure and function, no evidence of pulmonary hypertension, and no significant valvular dysfunction. Asymptomatic, continue symptomatic therapy. Follow up with cardiology as an outpatient. Qualifiers: Pericarditis type: unspecified type Chronicity: acute Qualified Code(s): I30.9 - Acute pericarditis, unspecified (2) Hypertension Current Visit: No Status: Chronic Blood pressure controlled. Continue home meds. Qualifiers: Hypertension type: essential hypertension Qualified Code(s): I10 - Essential (primary) hypertension (3) Nicotine addiction Current Visit: Yes Status: Acute Tobacco cessation discussed. Qualifiers: Nicotine product type: cigarettes Substance use status: uncomplicated Qualified Code(s): F17.210 - Nicotine dependence, cigarettes, uncomplicated (4) GERD (gastroesophageal reflux disease) Current Visit: No Status: Acute Continue home meds. Qualifiers: Esophagitis presence: without esophagitis Qualified Code(s): K21.9 - Gas tro-esophageal reflux disease without esophagitis Discussion w patient/family: The assessment and plan as outlined above was discussed with the patient and/or family members who expressed understanding and agreement. All questions were answered. Thank you for involving us in the care of your patient. Please call with any questions. History of Present Illness Consult date: 12/13/18 Requesting physician: Mimi Lara Consult reason: Pericarditis Chief complaint: Weakness History of present illness: Ms. Remy is a 38 year old female with a PMH of HTN, asthma, GERD, seizure disorder, Suboxone dependence, and tobacco dependence who presented complaining of generalized weakness, diaphoresis, and dizziness upon waking yesterday morning. She denied any associated fever, chills, chest pain, difficulty breathing, or history of similar symptoms. Of note, the patient reported taking her son's Prednisone and Augmentin 1 week ago for an upper respiratory infection. Patient admits to most recent marijuana use 3 days ago and denies current or past IV drug use. Patient's blood glucose was 44 upon arrival of EMS even though she is not a diabetic although she does admit to fasting for days at a time and having to be reminded to eat by her . EKG revealed diffuse ST segment elevation concerning for pericarditis. Echo was ordered and cardiology was consulted for further evaluation. Past Med Surg Social Fam HX - Past Medical History Medical history: arthritis, asthma, COPD, GERD, hypertension, seizures, other Additional medical history: scoliosis Psychiatric history: anxiety, depression - Past Surgical History Surgical History: other Additional surgical history: TUBAL - Social History Smoking Status: Current every day smoker Smokeless Tobacco Status: No Alcohol use: occasionally Drug use: marijuana - Family History Mother Adopted: No Family Member Ethnicity: Non- Living Status: Hx Family Cardiac Disorders: Yes (heart enlargement) Medications and Allergies Albuterol Sulfate [Albuterol Inhaler] 2 puff IH Q6HR PRN #1 inhaler 10/25/16 [Rx] Albuterol Neb [Proventil Neb] 2.5 mg IH Q6H PRN 04/08/17 [History] Buprenorphine HCl/Naloxone HCl [Suboxone 8 mg-2 mg Sl Film] 1 film SL BID 04/08/17 [History] Lisinopril [Zestril] 10 mg PO DAILY 04/08/17 [History] BuPROPion XL (24 HR) [Wellbutrin XL] 150 mg PO DAILY 12/13/18 [History] Metoprolol XL (24 HR) Succ [Toprol XL] 50 mg PO DAILY 12/13/18 [History] Allergy/AdvReac Type Severity Reaction Status Date / Time No Known Allergies Allergy Verified 03/03/17 23:21 All Systems Review: The remainder of the systems were reviewed and are negative - Constitutional Constitutional: fatigue, lethargy, weakness, no chills, no fever(s) - EENT Nose, mouth and throat: no dysphagia, no sore throat - Cardiovascular Cardiovascular: palpitations, no chest pain at rest, no chest pain with exerti on, no dyspnea at rest, no dyspnea on exertion - Respiratory Respiratory: no cough, no dyspnea - Gastrointestinal Gastrointestinal: no abdominal pain, no diarrhea, no nausea - Genitourinary Genitourinary: no dysuria, no hematuria - Musculoskeletal Musculoskeletal: no arthralgias, no myalgias - Integumentary Integumentary: no erythema, no rash - Neurological Neurological: dizziness, no numbness, no syncope, no tingling - Psychiatric Psychiatric: anxiety, no depression - Hematological/Lymphatic Hematologic/Lymphatic: no easy bleeding, no easy bruising Physical Examination Vital Signs, Last 4 Hours Temp Pulse Resp BP Pulse Ox 12/14/18 08:18 95 12/14/18 06:46 98.1 F 86 14 134/91 95 General: Conversant, No Apparent Distress HEENT: Atraumatic, Normocephaly, Mucus Membranes Moist Neck: No JVD, Normal carotid pulses Cardiac: Reg Rate and Rhythm, Normal S1 and S2, No Murmur (no friction rub) Lungs: Normal Breath Sounds, No Wheeze, Rales, Rhonchi Neuro: Alert and responsive, No focal deficits noted Abdomen: Soft, Non-Tender Skin: No rashes noted on visualized skin Musculoskeletal: No Chest Wall Tenderness Extremities: No Clubbing, No Cyanosis, No Edema, Normal Pulses Results 12/14/18 00:19 12/14/18 00:19 Lab Results 12/13/18 12/13/18 12/13/18 10:30 10:30 10:30 WBC 5.1 Hgb 13.9 Hct 42.1 Plt Count 136 L D-Dimer 365 Sodium 137 Potassium 3.8 Chloride 100 Carbon Dioxide 22 L BUN 13 Creatinine 0.72 Glucose 75 Calcium 9.0 Magnesium Troponin I 12/13/18 12/13/18 12/14/18 12:30 18:20 00:19 WBC Hgb Hct Plt Count D-Dimer Sodium Potassium Chloride Carbon Dioxide BUN Creatinine Glucose Calcium Magnesium Troponin I < 0.03 < 0.03 < 0.03 12/14/18 12/14/18 00:19 00:19 WBC 4.0 L Hgb 12.2 D Hct 36.1 Plt Count 122 L D-Dimer Sodium 135 L Potassium 3.9 Chloride 103 Carbon Dioxide 27 BUN 18 Creatinine 0.69 Glucose 142 H Calcium 8.0 L Magnesium 1.7 Troponin I - Imaging and Cardiology Echo: report reviewed - EKG Interpretation EKG results cardiology: personally reviewed, sinus rhythm (diffuse ST segment elevations) Consult Discharge Plan - Plan Referrals: Ching Casanova [Resident] - 12/19/18 3:00 pm (Please arrive 30 min early to your appointment. Please bring a valid form of ID, insurance card, and a list of any medications you are taking. If you need to cancel or reschedule your appointment please give the office a 24 hour notice. Thank you. ) <Taylor Solitario - Last Filed: 12/14/18 13:33> Date of Encounter: 12/14/18 - Attending Attestation I examined this patient and my medical decision-making was reviewed with the Resident Physician. I agree with the documented findings, disposition and treatment plan as described except to the extent set forth below. Ms. Remy presented for hypoglycemia and feeling weak. States that she did not eat for a couple of days because she wasn't feeling well although she states that sometimes she doesn't eat and has to be reminded by her . She denied fevers, chills, nausea, vomiting, diarrhea. Does report a somewhat productive cough but says this is normal for her. To me she denied any URI type symptoms. On presentation, ECG demonstrated diffuse ST elevation consistent with early repolarization abnormality. ECG may demonstrate OH abnormalities inferior leads and aVR suggesting pericarditis by ECG but not definitive. She has not been febrile. She denies chest pain. WBCs are normal. CXR is normal. No pericar dial effusion on Echo. Troponins negative. Viral serology negative. Subjective and a majority of the objective data do not support a diagnosis of pericarditis. If mild pericarditis, no treatment is necessary. Recommend observation and outpatient follow up. Will sign off. Assessment and Plan Discussion w patient/family: The assessment and plan as outlined above was discussed with the patient and/or family members who expressed understanding and agreement. All questions were answered. Thank you for involving us in the care of your patient. Please call with any questions. History of Present Illness History of present illness: Ms. Remy is a 38 year old female All Systems Review: The remainder of the systems were reviewed and are negative Physical Examination Vital Signs, Last 4 Hours Temp Pulse Resp BP Pulse Ox 12/14/18 11:11 98.6 F 71 16 127/80 91 Results 12/14/18 00:19 12/14/18 00:19 Lab Results 12/13/18 12/14/18 12/14/18 18:20 00:19 00:19 WBC 4.0 L Hgb 12.2 D Hct 36.1 Plt Count 122 L Sodium Potassium Chloride Carbon Dioxide BUN Creatinine Glucose Calcium Magnesium Troponin I < 0.03 < 0.03 12/14/18 00:19 WBC Hgb Hct Plt Count Sodium 135 L Potassium 3.9 Chloride 103 Carbon Dioxide 27 BUN 18 Creatinine 0.69 Glucose 142 H Calcium 8.0 L Magnesium 1.7 Troponin I
[2018-12-14 10:07] LABS: Estimated Average Glucose 105 mg/dl; Hemoglobin A1C 5.3 %
[2018-12-14 11:12] VITALS: BP 127/80
--- NOTE | 2018-12-14 14:45 | Discharge Summary ---
- NOTES TO OUTPATIENT PROVIDER Notes to Outpatient Provider: AG findings consistent with acute pericarditis status post upper respiratory infection troponins have been negative 3 echo was completed EF of 6065% normal LV chamber size wall thickness and function normal left ventricular diastolic function normal right ventricular structure and function no evidence pulmonary hypertension and significant bilateral dysfunction she is asymptomatic-continue with symptomatic therapy and follow-up with cardiology as an outpatient Orders not resulted at time of discharge: Pending orders 12/14/18 06:00 ECG 12 lead ECG [ECG] AM 0600 Date of Encounter: 12/14/18 Time of Encounter: 14:44 - Discharge Diagnosis (1) Hypertension Priority: Secondary Status: Chronic Qualifiers: Hypertension type: essential hypertension Qualified Code(s): I10 - Essential (primary) hypertension (2) GERD (gastroesophageal reflux disease) Priority: Secondary Status: Acute Qualifiers: Esophagitis presence: without esophagitis Qualified Code(s): K21.9 - Gastro-esophageal reflux disease without esophagitis (3) Pericarditis Priority: Primary Status: Acute Qualifiers: Pericarditis type: unspecified type Chronicity: acute Qualified Code(s): I30.9 - Acute pericarditis, unspecified (4) Nicotine addiction Priority: Secondary Status: Acute Qualifiers: Nicotine product type: cigarettes Substance use status: uncomplicated Qualified Code(s): F17.210 - Nicotine dependence, cigarettes, uncomplicated Hospital course: Ms. Remy is a 38 year old female past medical history of hypertension and asthma GERD seizure disorder Suboxone dependence tobacco dependence presented with complaints of generalized weakness diaphoresis and dizziness upon waking yesterday morning. She did have an episode of hypoglycemia-history of fasting 4 days at a time -admits to recent marijuana use 3 days ago denies any current or past IV drug use-EKG did show diffuse ST segment elevation concerning for pericarditis troponins negative 3 echo was completed EF 60-65% normal LV chamber size wall thickness and function normal left ventricular diastolic function normal right ventricular structure and function no evidence of pulmonary hypertension is significant valvular dysfunction-patient asymptomatic with no friction rub noted denies any pain or discomfort. Patient was seen by cardiology recommending supportive care and to follow-up as an outpatient. Currently patient denies he pain or discomfort and she is hemodynamically stable and ready for discharge - Time Spent with Patient Total time spent providing and/or coordinating discharge services: - Discharge Medications Prescriptions: Continue Albuterol Sulfate [Albuterol Inhaler] 2 puff IH Q6HR PRN #1 inhaler PRN Reason: Shortness Of Breath Lisinopril [Zestril] 10 mg PO DAILY Albuterol Neb [Proventil Neb] 2.5 mg IH Q6H PRN PRN Reason: Shortness Of Breath Buprenorphine HCl/Naloxone HCl [Suboxone 8 mg-2 mg Sl Film] 1 film SL BID BuPROPion XL (24 HR) [Wellbutrin Xl] 150 mg PO DAILY Metoprolol XL (24 HR) Succ [Toprol Xl] 50 mg PO DAILY Home Medications: Albuterol Sulfate [Albuterol Inhaler] 2 puff IH Q6HR PRN #1 inhaler 10/25/16 [Rx] Albuterol Neb [Proventil Neb] 2.5 mg IH Q6H PRN 04/08/17 [History] Buprenorphine HCl/Naloxone HCl [Suboxone 8 mg-2 mg Sl Film] 1 film SL BID 04/08/17 [History] Lisinopril [Zestril] 10 mg PO DAILY 04/08/17 [History] BuPROPion XL (24 HR) [Wellbutrin Xl] 150 mg PO DAILY 12/13/18 [History] Metoprolol XL (24 HR) Succ [Toprol Xl] 50 mg PO DAILY 12/13/18 [History] Allergies/Adverse Reactions: Allergy/AdvReac Type Severity Reaction Status Date / Time No Known Allergies Allergy Verified 03/03/17 23:21 Date of admission: 12/13/18 13:31 Primary care physician: PCP NONE Consults: 12/13/18 14:47 Consult to Cardiology [CONS] Routine Comment: Consulting Provider: Cardiology Marcela Reason for Consult: Pericarditis Time Notified: 14:47 Call Completed: No Discharging clinician: Mimi Lara Anticipated date of discharge: 12/14/18 - Constitutional Vitals: Temp Pulse Resp BP Pulse Ox 98.6 F 71 16 127/80 91 12/14/18 11:11 12/14/18 11:11 12/14/18 11:11 12/14/18 11:11 12/14/18 11:11 General appearance: Present: A&O X 3 Exam: .Skin: Free of rash and discoloration. Eyes: Sclera is white. There is no discharge from eyes. ENMT: Oral/pharyngeal mucosa is normal in appearance. There is no discharge from nose or ears. Respiratory: Normal breath sounds with no crackles and wheezes bilaterally. CV: Heart is regular with no gallop or murmur. GI: Abdomen is flat and soft with no palpable mass or visceromegaly. : There is no tenderness in patient's flanks bilaterally. Neuro exam: He has good strength in upper and lower extremities. He has normal eye movements. Psychiatric: He has normal affect. His thought process is appropriate to the situation. - Patient Status Disposition: Home, Self-Care Condition: Fair Functional capacity at discharge: independent ambulation - Discharge Instructions Follow Up With: Ching Casanova [Resident] - 12/19/18 3:00 pm (Please arrive 30 min early to your appointment. Please bring a valid form of ID, insurance card, and a list of any medications you are taking. If you need to cancel or reschedule your appointment please give the office a 24 hour notice. Thank you. ) - Diet and Activity Activity: increase activity as tolerated Diet: advance to your usual diet
--- NOTE | 2018-12-15 03:39 | Electrocardiograph Report ---
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
--- NOTE | 2018-12-15 03:39 | Electrocardiograph Report ---
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
== END 2018-12-14 16:58 | disposition home or self-care (01) ==
LOC: 3BNU 09:37 → EMEROOARM 09:37 → 3BNU 14:39
PROVIDERS: ADMIT Internal Medicine; ATTEND Internal Medicine

== ENCOUNTER 2022-03-03 20:43 | Observation (INO) ==
[2022-03-03] MEDS ORDERED: cefTRIAXone 1,000 MG in 0.9 % Sodium Chloride 10 ML IVP ONE (20:54)
[2022-03-03] MEDS ORDERED: Ipratropium/Albuterol Neb 3 ML IH ONE (20:54)
[2022-03-03] MEDS ORDERED: Azithromycin 500 MG in 0.9 % Sodium Chloride 250 ML IVPB ONE (20:54)
[2022-03-03] MEDS ORDERED: methylPREDNISolone 125 MG/2 ML VIAL IVP ONE (20:54)
[2022-03-03] MEDS ORDERED: 0.9 % Sodium Chloride 1,000 ML IVC ONE (20:54)
[2022-03-03 21:26] LABS: Basophils # 0.1 K/mcL (0.0-0.2); Basophils % 0.7 %; Eosinophils # 1.1 K/mcL (0.0-0.6); Eosinophils % 8.2 %; Hematocrit 40.6 % (35.3-44.9); Hemoglobin 13.5 g/dL (11.5-15.4); Immature Granulocytes % 0.4 % (0-4); Lymphocytes # 2.2 K/mcL (0.6-4.6); Lymphocytes % 16.9 %; Mean Corpuscular HGB Conc 33.3 g/dL (31.6-35.5); Mean Corpuscular Hemoglobin 31.9 pg (28.0-33.3); Monocytes # 0.7 K/mcL (0.0-1.3); Monocytes % 5.5 %; Neutrophils # 8.8 K/mcL (1.6-8.9); Platelet Count 390 K/mcL (140-400); Red Blood Count 4.23 M/mcL (3.82-4.97); Red Cell Distribution Width 12.2 % (11.5-14.5); Segmented Neutrophils % 68.3 %; White Blood Count 12.8 K/mcL (4.3-11.1)
[2022-03-03] MEDS ORDERED: *HR* HYDROcodone/Acet 5/325 mg TABLET PO ONE (21:34)
[2022-03-03 21:43] LABS: Alanine Aminotransferase 10 Units/L (7-52); Albumin 4.3 g/dL (3.5-5.7); Albumin/Globulin Ratio 1.4 (1.1-2.2); Alkaline Phosphatase 51 Units/L (34-104); Aspartate Amino Transferase 16 Units/L (13-39); BUN/Creatinine Ratio 6 (6-26); Bilirubin,Direct 0.1 mg/dL (0.0-0.2); Bilirubin,Indirect 0.3 mg/dL (0.0-1.0); Bilirubin,Total 0.4 mg/dL (0.3-1.0); Blood Urea Nitrogen 4 mg/dL (6-20); Calcium 9.8 mg/dL (8.6-10.3); Carbon Dioxide 23 mEq/L (23-29); Chloride 104 mEq/L (98-107); Globulin 3.1 g/dL (2.4-3.5); Glucose 102 mg/dL (70-105); Magnesium 1.7 mg/dL (1.6-2.6); Osmolality,Calculated 281 (280-300); Phosphorous 4.3 mg/dL (2.7-4.5); Potassium 4.2 mEq/L (3.5-5.1); Sodium 137 mEq/L (136-145); Total Protein 7.4 g/dL (6.4-8.9); Troponin I < 0.03 ng/mL (< 0.04); eGFR For African Americans > 60 (> 60); eGFR For Non-African Americans > 60 (> 60)
[2022-03-03 22:29] LABS: Influenza A PCR Negative (Negative); Influenza B PCR Negative (Negative); Resp. Syncytial Virus PCR Negative (Negative)
[2022-03-03 22:30] LABS: SARS-CoV-2 by PCR (In House) Negative (Negative)
[2022-03-03] MEDS ORDERED: Albuterol 2.5 MG/3 ML NEBULIZER IH ONE (22:37)
[2022-03-04 00:37] LABS: Bacteria,Urine Few per hpf (None-Few); Bilirubin,Urine Negative (Negative); Blood,Urine Negative (Negative); Clarity,Urine Turbid (Clear); Color,Urine Yellow (Yellow); Glucose,Urine (UA) Normal (Normal); Hyaline Casts,Urine Few per lpf (None Seen); Ketones,Urine Trace mg/dL (Negative); Leukocyte Esterase,Urine Moderate (Negative); Mucus,Urine Few per lpf (None-Few); Nitrite,Urine Negative (Negative); Protein,Urine Trace mg/dL (Neg-Trace); RBC,Urine 0-3 per hpf (0-3); Specific Gravity,Urine 1.018 (1.010-1.025); Squamous Epithelial Cell,Urine Moderate per hpf (None-Few); Urobilinogen,Urine Normal (Normal)
[2022-03-04] MEDS ORDERED: Ketorolac 30 MG/ML VIAL IVP STA (01:00)
[2022-03-04] MEDS ORDERED: Magnesium Sulfate 1 GM/102 ML PIGGYBACK IVPB ONE (01:00)
[2022-03-04] MEDS ORDERED: Melatonin 3 MG TABLET PO PRN (01:53)
[2022-03-04] MEDS ORDERED: Naloxone 0.4 MG/ML INJ IVP PRN (01:53)
[2022-03-04] MEDS ORDERED: Ondansetron ODT 4 MG TAB.RAPDIS SL PRN (01:53)
[2022-03-04 04:27] LABS: VBG HCO3 23 mEq/L (21-27); VBG PCO2 45 mmHg (41-51); VBG PH 7.33 pH Units (7.32-7.42); VBG PO2 48 mmHg (25-50)
[2022-03-04 04:30] LABS: Basophils % 0.2 %; Eosinophils % 0.1 %; Hematocrit 37.8 % (35.3-44.9); Hemoglobin 12.4 g/dL (11.5-15.4); Immature Granulocytes % 0.3 % (0-4); Lymphocytes # 0.6 K/mcL (0.6-4.6); Lymphocytes % 6.3 %; Mean Corpuscular HGB Conc 32.8 g/dL (31.6-35.5); Mean Corpuscular Hemoglobin 31.7 pg (28.0-33.3); Mean Corpuscular Volume 96.7 fL (83.0-100.0); Mean Platelet Volume 8.9 fL (9.4-12.4); Monocytes # 0.1 K/mcL (0.0-1.3); Monocytes % 0.7 %; Neutrophils # 8.5 K/mcL (1.6-8.9); Platelet Count 367 K/mcL (140-400); Red Blood Count 3.91 M/mcL (3.82-4.97); Red Cell Distribution Width 12.1 % (11.5-14.5); Segmented Neutrophils % 92.4 %; White Blood Count 9.2 K/mcL (4.3-11.1)
[2022-03-04 04:48] LABS: BUN/Creatinine Ratio 9 (6-26); Blood Urea Nitrogen 7 mg/dL (6-20); Calcium 9.1 mg/dL (8.6-10.3); Carbon Dioxide 25 mEq/L (23-29); Chloride 105 mEq/L (98-107); Glucose 202 mg/dL (70-105); Magnesium 1.9 mg/dL (1.6-2.6); Osmolality,Calculated 288 (280-300); Sodium 137 mEq/L (136-145); eGFR For African Americans > 60 (> 60); eGFR For Non-African Americans > 60 (> 60)
[2022-03-04 05:32] LABS: Adenovirus Not Detected (Not Detect); Bordetella Pertussis Not Detected (Not Detect); Chlamydophila pneumoniae Not Detected (Not Detect); Coronavirus 229E Not Detected (Not Detect); Coronavirus HKU1 Not Detected (Not Detect); Coronavirus NL63 Not Detected (Not Detect); Coronavirus OC43 Not Detected (Not Detect); Human Metapneumovirus Not Detected (Not Detect); Human Rhinovirus/Enterovirus Not Detected (Not Detect); Influenza A Subtype 2009 H1 Not Detected (Not Detect); Influenza B Not Detected (Not Detect); Mycoplasma pneumoniae Not Detected (Not Detect); Parainfluenza Virus 1 Not Detected (Not Detect); Parainfluenza Virus 2 Not Detected (Not Detect); Parainfluenza Virus 3 Not Detected (Not Detect); Parainfluenza Virus 4 Not Detected (Not Detect); Respiratory Syncytial Virus Not Detected (Not Detect); SARS-CoV-2 Not Detected (Not Detect)
[2022-03-04] MEDS: Ipratropium Neb 0.5 MG NEBULIZER IH SCH ×4 (07:55→22:42)
[2022-03-04] MEDS: Levalbuterol Neb 1.25 MG/3 ML IH SCH ×4 (07:55→22:42)
[2022-03-04] MEDS: Gabapentin 300 MG CAPSULE PO SCH ×2 (08:36→21:22)
[2022-03-04] MEDS: Metoprolol XL (24 HR) Succ 50 MG TAB.ER.24H PO SCH (08:36)
[2022-03-04] MEDS: hydrOXYzine pamoate 25 MG CAPSULE PO SCH ×3 (08:36→21:25)
[2022-03-04] MEDS: MethylPREDNISolone 40 MG/ML VIAL IVP SCH ×3 (08:37→23:59)
[2022-03-04] MEDS: Folic Acid 1 MG TABLET PO SCH (08:37)
[2022-03-04] MEDS: *HR* Buprenorphine HCl 8 MG TAB.SUBL SL SCH ×2 (10:29→21:23)
[2022-03-04] MEDS: Nicotine 14 MG PATCH.TD24 TD SCH (17:02)
[2022-03-04] MEDS ORDERED: traZODone 50 MG TABLET PO SCH (21:00)
[2022-03-05] MEDS: Ipratropium Neb 0.5 MG NEBULIZER IH SCH ×3 (04:05→15:23)
[2022-03-05] MEDS: Levalbuterol Neb 1.25 MG/3 ML IH SCH ×3 (04:05→15:23)
[2022-03-05] MEDS ORDERED: MethylPREDNISolone 40 MG/ML VIAL IVP SCH (08:15)
[2022-03-05] MEDS: Nicotine 14 MG PATCH.TD24 TD SCH (08:20)
[2022-03-05] MEDS: hydrOXYzine pamoate 25 MG CAPSULE PO SCH ×2 (08:21→17:24)
[2022-03-05] MEDS: Folic Acid 1 MG TABLET PO SCH (08:21)
[2022-03-05] MEDS: Gabapentin 300 MG CAPSULE PO SCH (08:21)
[2022-03-05] MEDS: Metoprolol XL (24 HR) Succ 50 MG TAB.ER.24H PO SCH (08:21)
[2022-03-05] MEDS: *HR* Buprenorphine HCl 8 MG TAB.SUBL SL SCH (08:21)
[2022-03-05 09:26] LABS: Basophils % 0.1 %; Hematocrit 38.8 % (35.3-44.9); Hemoglobin 12.5 g/dL (11.5-15.4); Immature Granulocytes % 0.9 % (0-4); Lymphocytes % 6.3 %; Mean Corpuscular HGB Conc 32.2 g/dL (31.6-35.5); Mean Corpuscular Hemoglobin 31.6 pg (28.0-33.3); Mean Corpuscular Volume 98.2 fL (83.0-100.0); Mean Platelet Volume 9.1 fL (9.4-12.4); Monocytes # 0.5 K/mcL (0.0-1.3); Monocytes % 2.9 %; Neutrophils # 14.1 K/mcL (1.6-8.9); Platelet Count 352 K/mcL (140-400); Red Blood Count 3.95 M/mcL (3.82-4.97); Red Cell Distribution Width 12.3 % (11.5-14.5); Segmented Neutrophils % 89.8 %
[2022-03-05 09:41] LABS: White Blood Count 15.7 K/mcL (4.3-11.1)
[2022-03-05 09:46] LABS: Alanine Aminotransferase 8 Units/L (7-52); Albumin 3.9 g/dL (3.5-5.7); Albumin/Globulin Ratio 1.3 (1.1-2.2); Alkaline Phosphatase 46 Units/L (34-104); Aspartate Amino Transferase 11 Units/L (13-39); BUN/Creatinine Ratio 19 (6-26); Bilirubin,Total 0.2 mg/dL (0.3-1.0); Blood Urea Nitrogen 13 mg/dL (6-20); Calcium 9.5 mg/dL (8.6-10.3); Carbon Dioxide 24 mEq/L (23-29); Chloride 106 mEq/L (98-107); Globulin 2.9 g/dL (2.4-3.5); Glucose 144 mg/dL (70-105); Osmolality,Calculated 291 (280-300); Potassium 4.4 mEq/L (3.5-5.1); Sodium 139 mEq/L (136-145); Total Protein 6.8 g/dL (6.4-8.9); eGFR For African Americans > 60 (> 60); eGFR For Non-African Americans > 60 (> 60)
[2022-03-05 11:57] VITALS: BP 117/72; PULSE 62; TEMP 97.9
[2022-03-05 15:25] VITALS: O2SAT 94
== END 2022-03-05 18:25 | disposition home or self-care (01) ==
LOC: EMEROOARM 20:43 → 3ANU 20:43 → SUATTDRO 03-04 02:01 → 3ANU 03-04 03:00
PROVIDERS: ADMIT Internal Medicine; ATTEND Family Medicine

== ENCOUNTER 2022-03-14 23:46 | Inpatient (IN) ==
[2022-03-14] MEDS ORDERED: Ipratropium/Albuterol Neb 3 ML IH ONE (23:58)
[2022-03-14] MEDS ORDERED: methylPREDNISolone 125 MG/2 ML VIAL IVP ONE (23:58)
[2022-03-14] MEDS ORDERED: Albuterol 2.5 MG/3 ML NEBULIZER IH ONE (23:58)
[2022-03-15 00:27] LABS: ABG Base Excess 2 mEq/L (-2 to 3); ABG HCO3 33 mEq/L (21-27); ABG Oxygen Saturation 98 % (95-98); ABG PCO2 77 mmHg (35-45); ABG PH 7.23 pH Units (7.32-7.45); ABG PO2 119 mmHg (85-104); ABG TCO2 35 mEq/L (20-26); Blood Gas Modality NIV
[2022-03-15 00:51] LABS: Alanine Aminotransferase 12 Units/L (7-52); Albumin 4.2 g/dL (3.5-5.7); Albumin/Globulin Ratio 1.2 (1.1-2.2); Alkaline Phosphatase 54 Units/L (34-104); Aspartate Amino Transferase 19 Units/L (13-39); BUN/Creatinine Ratio 7 (6-26); Basophils # 0.1 K/mcL (0.0-0.2); Basophils % 0.5 %; Bilirubin,Total 0.3 mg/dL (0.3-1.0); Blood Urea Nitrogen 6 mg/dL (6-20); Calcium 9.4 mg/dL (8.6-10.3); Carbon Dioxide 32 mEq/L (23-29); Chloride 98 mEq/L (98-107); Eosinophils # 1.3 K/mcL (0.0-0.6); Eosinophils % 8.1 %; Globulin 3.4 g/dL (2.4-3.5); Glucose 100 mg/dL (70-105); Hematocrit 41.9 % (35.3-44.9); Hemoglobin 13.8 g/dL (11.5-15.4); Immature Granulocytes % 0.3 % (0-4); Lymphocytes # 4.2 K/mcL (0.6-4.6); Lymphocytes % 25.3 %; Mean Corpuscular HGB Conc 32.9 g/dL (31.6-35.5); Mean Corpuscular Hemoglobin 32.2 pg (28.0-33.3); Mean Corpuscular Volume 97.7 fL (83.0-100.0); Mean Platelet Volume 9.7 fL (9.4-12.4); Monocytes # 0.9 K/mcL (0.0-1.3); Monocytes % 5.2 %; Osmolality,Calculated 282 (280-300); Platelet Count 247 K/mcL (140-400); Potassium 4.1 mEq/L (3.5-5.1); Red Blood Count 4.29 M/mcL (3.82-4.97); Red Cell Distribution Width 12.6 % (11.5-14.5); Segmented Neutrophils % 60.6 %; Sodium 137 mEq/L (136-145); Total Protein 7.6 g/dL (6.4-8.9); Troponin I < 0.03 ng/mL (< 0.04); White Blood Count 16.5 K/mcL (4.3-11.1); eGFR For African Americans > 60 (> 60); eGFR For Non-African Americans > 60 (> 60)
[2022-03-15] MEDS ORDERED: Azithromycin 250 MG TABLET PO ONE (01:29)
[2022-03-15 03:04] LABS: Adenovirus Not Detected (Not Detect); Bordetella Pertussis Not Detected (Not Detect); Chlamydophila pneumoniae Not Detected (Not Detect); Coronavirus 229E Not Detected (Not Detect); Coronavirus HKU1 Not Detected (Not Detect); Coronavirus NL63 Not Detected (Not Detect); Coronavirus OC43 Not Detected (Not Detect); Human Metapneumovirus Not Detected (Not Detect); Human Rhinovirus/Enterovirus Not Detected (Not Detect); Influenza A Subtype 2009 H1 Not Detected (Not Detect); Influenza B Not Detected (Not Detect); Mycoplasma pneumoniae Not Detected (Not Detect); Parainfluenza Virus 1 Not Detected (Not Detect); Parainfluenza Virus 2 Not Detected (Not Detect); Parainfluenza Virus 3 Not Detected (Not Detect); Parainfluenza Virus 4 Not Detected (Not Detect); Respiratory Syncytial Virus Not Detected (Not Detect); SARS-CoV-2 Not Detected (Not Detect)
[2022-03-15] MEDS ORDERED: Acetaminophen 325 MG TABLET PO PRN (03:06)
[2022-03-15] MEDS ORDERED: Naloxone 0.4 MG/ML INJ IVP PRN (03:06)
[2022-03-15] MEDS ORDERED: Ondansetron 4 MG/2 ML VIAL IVP PRN (03:06)
[2022-03-15] MEDS ORDERED: Melatonin 3 MG TABLET PO PRN (03:06)
[2022-03-15] MEDS ORDERED: Albuterol 2.5 MG/3 ML NEBULIZER IH PRN (03:52)
[2022-03-15] MEDS: Ipratropium/Albuterol Neb 3 ML IH SCH ×4 (04:28→22:29)
[2022-03-15] MEDS: 0.9 % Sodium Chloride 1,000 ML IVC SCH ×2 (04:34→12:48)
[2022-03-15 04:40] LABS: ABG Base Excess 1 mEq/L (-2 to 3); ABG HCO3 26 mEq/L (21-27); ABG Oxygen Saturation 97 % (95-98); ABG PCO2 46 mmHg (35-45); ABG PH 7.37 pH Units (7.32-7.45); ABG PO2 90 mmHg (85-104); ABG TCO2 28 mEq/L (20-26); Blood Gas Modality BiLevel; Blood Gas Pressure Support 6 cm H2O
[2022-03-15] MEDS: *HR* Heparin 5,000 UNIT/ML VIAL SQ SCH ×2 (06:07→16:33)
[2022-03-15] MEDS ORDERED: Iopamidol - 370 500 ML MLS IVP ONE (09:23)
[2022-03-15] MEDS ORDERED: Perflutren Lipid Microsphere 1.3 ML in 0.9 % Sodium Chloride 8.7 ML IVP PRN (09:23)
[2022-03-15] MEDS: predniSONE 20 MG TABLET PO SCH (09:57)
[2022-03-15] MEDS ORDERED: Furosemide 20 MG/2 ML VIAL IVP ONE (11:09)
[2022-03-15] MEDS ORDERED: *HR* Metoprolol 5 MG/5 ML VIAL IVP PRN (15:05)
[2022-03-15] MEDS ORDERED: Ketorolac 30 MG/ML VIAL IM PRN (15:20)
[2022-03-15] MEDS: Metoprolol XL (24 HR) Succ 50 MG TAB.ER.24H PO SCH (15:37)
[2022-03-15] MEDS ORDERED: Artificial Tears SOLN 15 ML BOTTLE BOTH EYES PRN (19:50)
[2022-03-15] MEDS: hydrOXYzine pamoate 25 MG CAPSULE PO SCH (20:40)
[2022-03-15] MEDS: cefTRIAXone 1,000 MG in Water for inj. (sterile) 10 ML IVP SCH (20:47)
[2022-03-15] MEDS ORDERED: Latanoprost 2.5 ML BOTTLE BOTH EYES SCH (21:00)
[2022-03-15] MEDS ORDERED: traZODone 50 MG TABLET PO SCH (21:00)
[2022-03-16] MEDS ORDERED: Azithromycin 500 MG in D5% in Water 250 ML IVPB SCH (01:30)
[2022-03-16 03:38] LABS: Basophils % 0.2 %; Eosinophils % 0.2 %; Hematocrit 35.3 % (35.3-44.9); Immature Granulocytes % 0.4 % (0-4); Lymphocytes # 1.4 K/mcL (0.6-4.6); Mean Corpuscular Hemoglobin 30.7 pg (28.0-33.3); Mean Corpuscular Volume 95.9 fL (83.0-100.0); Mean Platelet Volume 9.8 fL (9.4-12.4); Monocytes # 0.6 K/mcL (0.0-1.3); Monocytes % 5.6 %; Neutrophils # 9.3 K/mcL (1.6-8.9); Platelet Count 216 K/mcL (140-400); Red Blood Count 3.68 M/mcL (3.82-4.97); Red Cell Distribution Width 12.8 % (11.5-14.5); Segmented Neutrophils % 81.6 %; White Blood Count 11.3 K/mcL (4.3-11.1)
[2022-03-16 03:39] LABS: Hemoglobin 11.3 g/dL (11.5-15.4)
[2022-03-16 04:01] LABS: BUN/Creatinine Ratio 23 (6-26); Blood Urea Nitrogen 16 mg/dL (6-20); Calcium 8.9 mg/dL (8.6-10.3); Carbon Dioxide 23 mEq/L (23-29); Chloride 107 mEq/L (98-107); Glucose 225 mg/dL (70-105); Osmolality,Calculated 294 (280-300); Sodium 138 mEq/L (136-145); eGFR For African Americans > 60 (> 60); eGFR For Non-African Americans > 60 (> 60)
[2022-03-16] MEDS: Ipratropium/Albuterol Neb 3 ML IH SCH ×4 (04:02→22:30)
[2022-03-16] MEDS: *HR* Heparin 5,000 UNIT/ML VIAL SQ SCH ×2 (06:12→17:01)
[2022-03-16] MEDS ORDERED: cefTRIAXone 1,000 MG in Water for inj. (sterile) 10 ML IVP SCH (09:00)
[2022-03-16] MEDS: hydrOXYzine pamoate 25 MG CAPSULE PO SCH ×3 (10:10→20:48)
[2022-03-16] MEDS: Metoprolol XL (24 HR) Succ 50 MG TAB.ER.24H PO SCH (10:10)
[2022-03-16] MEDS: predniSONE 20 MG TABLET PO SCH (10:10)
[2022-03-16] MEDS: cefTRIAXone 1,000 MG in Water for inj. (sterile) 10 ML IVP SCH (10:10)
[2022-03-16] MEDS ORDERED: *HR* Buprenorphine HCl 8 MG TAB.SUBL SL SCH (10:15)
[2022-03-16] MEDS ORDERED: Ketorolac 30 MG/ML VIAL IVP PRN (15:04)
[2022-03-16] MEDS ORDERED: Albuterol 2.5 MG/3 ML NEBULIZER IH PRN (19:52)
[2022-03-16] MEDS ORDERED: Ondansetron 4 MG/2 ML VIAL IVP PRN (19:52)
[2022-03-16] MEDS ORDERED: *HR* Metoprolol 5 MG/5 ML VIAL IVP PRN (19:52)
[2022-03-16] MEDS ORDERED: Acetaminophen 325 MG TABLET PO PRN (19:52)
[2022-03-16] MEDS ORDERED: Artificial Tears SOLN 15 ML BOTTLE BOTH EYES PRN (19:52)
[2022-03-16] MEDS ORDERED: Naloxone 0.4 MG/ML INJ IVP PRN (19:52)
[2022-03-16] MEDS: Gabapentin 300 MG CAPSULE PO SCH (20:47)
[2022-03-16] MEDS: traZODone 50 MG TABLET PO SCH (20:48)
[2022-03-16] MEDS: *HR* Buprenorphine HCl 8 MG TAB.SUBL SL SCH (20:48)
[2022-03-16] MEDS: Melatonin 3 MG TABLET PO PRN (20:51)
[2022-03-16] MEDS ORDERED: Gabapentin 300 MG CAPSULE PO SCH (21:00)
[2022-03-17] MEDS: Azithromycin 500 MG in D5% in Water 250 ML IVPB SCH (01:11)
[2022-03-17] MEDS: Ipratropium/Albuterol Neb 3 ML IH SCH ×4 (04:15→22:35)
[2022-03-17] MEDS: *HR* Heparin 5,000 UNIT/ML VIAL SQ SCH ×2 (05:26→17:48)
[2022-03-17 06:57] LABS: Basophils % 0.5 %; Eosinophils # 0.1 K/mcL (0.0-0.6); Eosinophils % 1.1 %; Hematocrit 33.6 % (35.3-44.9); Hemoglobin 10.8 g/dL (11.5-15.4); Immature Granulocytes % 0.3 % (0-4); Lymphocytes # 1.7 K/mcL (0.6-4.6); Lymphocytes % 21.8 %; Mean Corpuscular HGB Conc 32.1 g/dL (31.6-35.5); Mean Corpuscular Hemoglobin 31.3 pg (28.0-33.3); Mean Corpuscular Volume 97.4 fL (83.0-100.0); Mean Platelet Volume 9.4 fL (9.4-12.4); Monocytes # 0.5 K/mcL (0.0-1.3); Monocytes % 6.3 %; Neutrophils # 5.5 K/mcL (1.6-8.9); Platelet Count 218 K/mcL (140-400); Red Blood Count 3.45 M/mcL (3.82-4.97); Red Cell Distribution Width 12.6 % (11.5-14.5); White Blood Count 7.9 K/mcL (4.3-11.1)
[2022-03-17 07:16] LABS: BUN/Creatinine Ratio 25 (6-26); Blood Urea Nitrogen 18 mg/dL (6-20); Calcium 8.9 mg/dL (8.6-10.3); Carbon Dioxide 24 mEq/L (23-29); Chloride 105 mEq/L (98-107); Glucose 98 mg/dL (70-105); Osmolality,Calculated 288 (280-300); Potassium 4.2 mEq/L (3.5-5.1); Sodium 138 mEq/L (136-145); eGFR For African Americans > 60 (> 60); eGFR For Non-African Americans > 60 (> 60)
[2022-03-17] MEDS: *HR* Buprenorphine HCl 8 MG TAB.SUBL SL SCH ×2 (09:45→22:02)
[2022-03-17] MEDS: Gabapentin 300 MG CAPSULE PO SCH ×2 (09:45→22:00)
[2022-03-17] MEDS: Metoprolol XL (24 HR) Succ 50 MG TAB.ER.24H PO SCH (09:45)
[2022-03-17] MEDS: predniSONE 20 MG TABLET PO SCH (09:45)
[2022-03-17] MEDS: cefTRIAXone 1,000 MG in Water for inj. (sterile) 10 ML IVP SCH (09:46)
[2022-03-17] MEDS: hydrOXYzine pamoate 25 MG CAPSULE PO SCH ×3 (09:49→22:00)
[2022-03-17] MEDS ORDERED: Ketorolac 30 MG/ML VIAL IM ONE (12:34)
[2022-03-17] MEDS: traZODone 50 MG TABLET PO SCH (22:00)
[2022-03-17] MEDS: Melatonin 3 MG TABLET PO PRN (22:02)
[2022-03-18] MEDS: Azithromycin 500 MG in D5% in Water 250 ML IVPB SCH (01:29)
[2022-03-18 03:01] LABS: Basophils % 0.2 %; Eosinophils % 0.1 %; Hematocrit 33.8 % (35.3-44.9); Hemoglobin 10.8 g/dL (11.5-15.4); Immature Granulocytes % 0.4 % (0-4); Lymphocytes # 1.6 K/mcL (0.6-4.6); Lymphocytes % 17.1 %; Mean Corpuscular Hemoglobin 31.1 pg (28.0-33.3); Mean Corpuscular Volume 97.4 fL (83.0-100.0); Mean Platelet Volume 9.3 fL (9.4-12.4); Monocytes # 0.5 K/mcL (0.0-1.3); Monocytes % 5.5 %; Platelet Count 230 K/mcL (140-400); Red Blood Count 3.47 M/mcL (3.82-4.97); Red Cell Distribution Width 12.5 % (11.5-14.5); Segmented Neutrophils % 76.7 %; White Blood Count 9.2 K/mcL (4.3-11.1)
[2022-03-18 03:23] LABS: BUN/Creatinine Ratio 21 (6-26); Blood Urea Nitrogen 14 mg/dL (6-20); Carbon Dioxide 24 mEq/L (23-29); Chloride 107 mEq/L (98-107); Glucose 161 mg/dL (70-105); Osmolality,Calculated 290 (280-300); Potassium 4.1 mEq/L (3.5-5.1); Sodium 138 mEq/L (136-145); eGFR For African Americans > 60 (> 60); eGFR For Non-African Americans > 60 (> 60)
[2022-03-18] MEDS: Ipratropium/Albuterol Neb 3 ML IH SCH ×3 (04:26→15:24)
[2022-03-18] MEDS: *HR* Heparin 5,000 UNIT/ML VIAL SQ SCH ×2 (05:30→16:47)
[2022-03-18] MEDS ORDERED: CefTRIAXone 1,000 MG VIAL ONE (08:38)
[2022-03-18] MEDS: Gabapentin 300 MG CAPSULE PO SCH (08:45)
[2022-03-18] MEDS: Metoprolol XL (24 HR) Succ 50 MG TAB.ER.24H PO SCH (08:45)
[2022-03-18] MEDS: hydrOXYzine pamoate 25 MG CAPSULE PO SCH ×2 (08:45→16:47)
[2022-03-18] MEDS: predniSONE 20 MG TABLET PO SCH (08:45)
[2022-03-18] MEDS: cefTRIAXone 1,000 MG in Water for inj. (sterile) 10 ML IVP SCH (08:46)
[2022-03-18] MEDS: *HR* Buprenorphine HCl 8 MG TAB.SUBL SL SCH (08:48)
[2022-03-18 15:22] VITALS: BP 139/95; PULSE 83; TEMP 98.5
[2022-03-18 15:26] VITALS: O2SAT 93
== END 2022-03-18 19:20 | disposition home or self-care (01) | DRG 133 ==
LOC: EMEROOARM 23:46 → 2NNU 23:46 → SUATTDRO 03-15 01:57 → 2NNU 03-15 03:06 → SUATTDRO 03-15 15:13 → 3NENU 03-16 13:57
PROVIDERS: ADMIT Family Medicine; ATTEND Family Medicine

== ENCOUNTER 2022-06-18 21:46 | Inpatient (IN) ==
[2022-06-18] MEDS ORDERED: Ipratropium/Albuterol Neb 3 ML IH ONE (22:57)
[2022-06-18] MEDS ORDERED: methylPREDNISolone 125 MG/2 ML VIAL IVP ONE (22:57)
[2022-06-18] MEDS ORDERED: 0.9 % Sodium Chloride 1,000 ML IVC ONE (22:57)
[2022-06-18 23:44] LABS: Basophils % 0.5 %; Eosinophils # 0.3 K/mcL (0.0-0.6); Eosinophils % 3.9 %; Hematocrit 44.7 % (35.3-44.9); Hemoglobin 14.1 g/dL (11.5-15.4); Immature Granulocytes % 0.3 % (0-4); Lymphocytes # 1.1 K/mcL (0.6-4.6); Lymphocytes % 16.3 %; Mean Corpuscular HGB Conc 31.5 g/dL (31.6-35.5); Mean Corpuscular Hemoglobin 30.4 pg (28.0-33.3); Mean Corpuscular Volume 96.3 fL (83.0-100.0); Mean Platelet Volume 8.8 fL (9.4-12.4); Monocytes # 0.6 K/mcL (0.0-1.3); Monocytes % 9.4 %; Neutrophils # 4.6 K/mcL (1.6-8.9); Platelet Count 189 K/mcL (140-400); Red Blood Count 4.64 M/mcL (3.82-4.97); Red Cell Distribution Width 15.7 % (11.5-14.5); Segmented Neutrophils % 69.6 %; White Blood Count 6.6 K/mcL (4.3-11.1)
[2022-06-18 23:58] LABS: VBG HCO3 30 mEq/L (21-27); VBG PCO2 61 mmHg (41-51); VBG PO2 47 mmHg (25-50)
[2022-06-19 00:05] LABS: Alanine Aminotransferase 13 Units/L (7-52); Albumin 4.3 g/dL (3.5-5.7); Albumin/Globulin Ratio 1.5 (1.1-2.2); Alkaline Phosphatase 52 Units/L (34-104); Aspartate Amino Transferase 15 Units/L (13-39); BUN/Creatinine Ratio 29 (6-26); Bilirubin,Direct 0.1 mg/dL (0.0-0.2); Bilirubin,Indirect 0.5 mg/dL (0.0-1.0); Bilirubin,Total 0.6 mg/dL (0.3-1.0); Blood Urea Nitrogen 19 mg/dL (6-20); Calcium 9.4 mg/dL (8.6-10.3); Carbon Dioxide 30 mEq/L (23-29); Chloride 101 mEq/L (98-107); Globulin 2.8 g/dL (2.4-3.5); Glucose 106 mg/dL (70-105); Osmolality,Calculated 293 (280-300); Potassium 3.7 mEq/L (3.5-5.1); Sodium 140 mEq/L (136-145); Total Protein 7.1 g/dL (6.4-8.9); Troponin I < 0.03 ng/mL (< 0.04)
[2022-06-19 00:17] LABS: Influenza A PCR Negative (Negative); Influenza B PCR Negative (Negative); Resp. Syncytial Virus PCR Negative (Negative)
[2022-06-19 00:18] LABS: SARS-CoV-2 by PCR (In House) Negative (Negative)
[2022-06-19] MEDS ORDERED: Albuterol 2.5 MG/3 ML NEBULIZER IH ONE (00:45)
[2022-06-19] MEDS ORDERED: cefTRIAXone 1,000 MG in 0.9 % Sodium Chloride Mini Bag 100 ML IVPB ONE (00:46)
[2022-06-19] MEDS ORDERED: Azithromycin 500 MG in 0.9 % Sodium Chloride 250 ML IVPB ONE (00:46)
[2022-06-19] MEDS ORDERED: Acetaminophen 325 MG TABLET PO PRN (01:21)
[2022-06-19] MEDS ORDERED: Naloxone 0.4 MG/ML INJ IVP PRN (01:21)
[2022-06-19] MEDS ORDERED: Ondansetron 4 MG/2 ML VIAL IVP PRN (01:21)
[2022-06-19] MEDS: Ipratropium Neb 0.5 MG NEBULIZER IH SCH ×4 (03:39→23:01)
[2022-06-19] MEDS: Levalbuterol Neb 0.63 MG/3 ML IH SCH ×4 (03:39→23:01)
[2022-06-19] MEDS: *HR* Enoxaparin 40 MG/0.4 ML SYRINGE SQ SCH (06:35)
[2022-06-19] MEDS ORDERED: predniSONE 20 MG TABLET PO SCH (09:00)
[2022-06-19] MEDS: levoFLOXacin 750 MG/150 ML 750 MG/150 ML BAG IVPB SCH (10:01)
[2022-06-19] MEDS: Loratadine 10 MG TABLET PO SCH (10:01)
[2022-06-19] MEDS: Metoprolol XL (24 HR) Succ 50 MG TAB.ER.24H PO SCH (14:38)
[2022-06-19] MEDS: MethylPREDNISolone 40 MG/ML VIAL IVP SCH (16:55)
[2022-06-19] MEDS: traZODone 50 MG TABLET PO SCH (19:46)
[2022-06-19] MEDS: Gabapentin 300 MG CAPSULE PO SCH (19:46)
[2022-06-20] MEDS: MethylPREDNISolone 40 MG/ML VIAL IVP SCH ×3 (01:24→17:51)
[2022-06-20] MEDS: Levalbuterol Neb 0.63 MG/3 ML IH SCH ×4 (03:58→22:28)
[2022-06-20] MEDS: Ipratropium Neb 0.5 MG NEBULIZER IH SCH ×4 (03:58→22:28)
[2022-06-20 05:55] LABS: Hematocrit 42.4 % (35.3-44.9); Hemoglobin 13.6 g/dL (11.5-15.4); Immature Granulocytes % 0.6 % (0-4); Lymphocytes # 0.3 K/mcL (0.6-4.6); Lymphocytes % 5.2 %; Mean Corpuscular HGB Conc 32.1 g/dL (31.6-35.5); Mean Corpuscular Hemoglobin 30.4 pg (28.0-33.3); Mean Corpuscular Volume 94.6 fL (83.0-100.0); Mean Platelet Volume 9.2 fL (9.4-12.4); Monocytes # 0.2 K/mcL (0.0-1.3); Monocytes % 3.7 %; Neutrophils # 5.9 K/mcL (1.6-8.9); Platelet Count 203 K/mcL (140-400); Red Blood Count 4.48 M/mcL (3.82-4.97); Red Cell Distribution Width 15.3 % (11.5-14.5); Segmented Neutrophils % 90.5 %; White Blood Count 6.5 K/mcL (4.3-11.1)
[2022-06-20 06:25] LABS: BUN/Creatinine Ratio 24 (6-26); Blood Urea Nitrogen 17 mg/dL (6-20); Calcium 9.5 mg/dL (8.6-10.3); Carbon Dioxide 24 mEq/L (23-29); Chloride 102 mEq/L (98-107); Glucose 300 mg/dL (70-105); Magnesium 1.5 mg/dL (1.6-2.6); Osmolality,Calculated 295 (280-300); Potassium 4.2 mEq/L (3.5-5.1); Sodium 136 mEq/L (136-145)
[2022-06-20] MEDS: *HR* Enoxaparin 40 MG/0.4 ML SYRINGE SQ SCH (08:07)
[2022-06-20] MEDS: Loratadine 10 MG TABLET PO SCH (08:07)
[2022-06-20] MEDS: Magnesium Oxide 400 MG TABLET PO SCH ×2 (08:08→22:11)
[2022-06-20] MEDS: levoFLOXacin 750 MG/150 ML 750 MG/150 ML BAG IVPB SCH (08:08)
[2022-06-20] MEDS: Gabapentin 300 MG CAPSULE PO SCH ×2 (08:08→22:12)
[2022-06-20] MEDS: Metoprolol XL (24 HR) Succ 50 MG TAB.ER.24H PO SCH (08:08)
[2022-06-20] MEDS: Folic Acid 1 MG TABLET PO SCH (08:08)
[2022-06-20] MEDS: Nicotine 21 MG PATCH.TD24 TD SCH (08:08)
[2022-06-20] MEDS: *HR* Buprenorphine HCl 8 MG TAB.SUBL SL SCH (14:40)
[2022-06-20] MEDS: traZODone 50 MG TABLET PO SCH (22:10)
[2022-06-21] MEDS: MethylPREDNISolone 40 MG/ML VIAL IVP SCH ×2 (00:19→08:02)
[2022-06-21] MEDS: Levalbuterol Neb 0.63 MG/3 ML IH SCH ×2 (03:27→10:36)
[2022-06-21] MEDS: Ipratropium Neb 0.5 MG NEBULIZER IH SCH ×2 (03:27→10:36)
[2022-06-21] MEDS: *HR* Enoxaparin 40 MG/0.4 ML SYRINGE SQ SCH (06:24)
[2022-06-21 07:06] VITALS: BP 113/66; PULSE 80; TEMP 98.2
[2022-06-21] MEDS: levoFLOXacin 750 MG/150 ML 750 MG/150 ML BAG IVPB SCH (08:02)
[2022-06-21] MEDS: Nicotine 21 MG PATCH.TD24 TD SCH (08:03)
[2022-06-21] MEDS: Gabapentin 300 MG CAPSULE PO SCH (08:03)
[2022-06-21] MEDS: *HR* Buprenorphine HCl 8 MG TAB.SUBL SL SCH (08:03)
[2022-06-21] MEDS: Folic Acid 1 MG TABLET PO SCH (08:03)
[2022-06-21] MEDS: Magnesium Oxide 400 MG TABLET PO SCH (08:04)
[2022-06-21] MEDS: Metoprolol XL (24 HR) Succ 50 MG TAB.ER.24H PO SCH (08:04)
[2022-06-21] MEDS: Loratadine 10 MG TABLET PO SCH (08:04)
[2022-06-21 11:44] VITALS: O2SAT 95
== END 2022-06-21 12:46 | disposition home or self-care (01) | DRG 133 ==
LOC: 3ANU 21:46 → EMEROOARM 21:46 → SUATTDRO 06-19 09:59 → 3ANU 06-19 11:03
PROVIDERS: ADMIT Internal Medicine; ATTEND Internal Medicine